=== PATIENT | male | born 1955 | race Caucasian/White ===

== ENCOUNTER 2021-02-15 11:35 | Inpatient (IN) | payer MEDICARE, SELFPAY ==
[2021-02-15] VITALS (10 sets, daily range): BP systolic 115–153; BP diastolic 64–73; PULSE 56–77; RESP 18–20; TEMP 36.3–36.7; O2SAT 96–100; BMI 40.5; BMI 39.2
--- NOTE | 2021-02-15 11:50 | NURSING ---
NO OLD EKGS
--- NOTE | 2021-02-15 12:00 | EKG12_ITS ---
Test Reason : CONFUSION Blood Pressure : / mmHG Vent. Rate : 067 BPM Atrial Rate : 066 BPM P-R Int : 000 ms QRS Dur : 158 ms QT Int : 470 ms P-R-T Axes : 000 080 -79 degrees QTc Int : 496 ms Atrial fibrillation Left bundle branch block Abnormal ECG Confirmed by PATRICIA PRITCHARD, SUNIL ([id number]), electronic news gathering editor VANDA JANE ([id number]) on 02/18/2021 1:29:45 PM Referred By: AISHA Confirmed By:LALI GOMEZ MD
--- NOTE | 2021-02-15 12:09 | EX.ED.DYSGE1 ---
HPI History of Present Illness Chief Complaint: Confusion Informant: patient and spouse/S.O. Narrative Narrative: Patient is a 65-year-old male with a past medical history of CAD with bypass who presents to the emergency department for multiple complaints. He was seen by his PCP yesterday. He was diagnosed with new onset atrial fibrillation and started on Eliquis. He had basic lab work drawn at that time. He was also complaining of 25 pound weight gain with significant lower leg swelling over the past couple of months. He does feel short of breath with exertion. Patient's lab work came back today with a sodium of 111. He has been having some confusion over the past couple of days per the . He thought that he was driving to [place] today whenever they were coming to [place]. Patient does not feel confused. He denies any headache or vision changes. He denies any chest pain or palpitations. No abdominal pain or vomiting. No change in bowel movements. No urinary symptoms. He states that he has not been watching his diet. Patient was supposed to come to the emergency department yesterday but refused. They ended up starting him on Lasix and spironolactone. [facility] Medical History (Updated 02/15/21 @ 14:[address] Augustus Ruiz, ) Hypertension Home Medications amlodipine 10 mg PO DAILY 02/15/21 [History Last Taken 02/15/21] apixaban [Eliquis] 5 mg PO BID 02/15/21 [History Last Taken 02/15/21] atenolol 100 mg PO DAILY 02/15/21 [History Last Taken 02/15/21] atorvastatin 20 mg PO DAILY 02/15/21 [History Last Taken 02/15/21] famotidine 40 mg PO DAILY 02/15/21 [History Last Taken 02/15/21] furosemide 60 mg PO DAILY 02/15/21 [History Last Taken 02/15/21] hydrochlorothiazide 25 mg PO DAILY 02/15/21 [History Last Taken 02/14/21] isosorbide mononitrate 60 mg PO DAILY 02/15/21 [History Last Taken 02/15/21] lisinopril 20 mg PO DAILY 02/15/21 [History Last Taken 02/15/21] multivitamin 1 tab PO LUNCH 02/15/21 [History Last Taken 02/14/21] sour cason extract [Tart Cason Extract] 1,000 mg PO LUNCH 02/15/21 [History Last Taken 02/14/21] spironolactone 25 mg PO DAILY 02/15/21 [History Last Taken Unknown] Allergy/AdvReac Type Severity Reaction Status Date / Time albuterol [From Ventolin HFA] Allergy Rash Verified 02/15/21 11:38 Family History (Updated 02/15/21 @ 13:47 by Saniya Amaya) Father CAD (coronary artery disease) Uncle CAD (coronary artery disease) Father Myocardial infarction Uncle Myocardial infarction Social History Smoking Status: Never smoker ROS ROS ED Constitutional Constitutional ED: Denies chills or fever(s) Eyes Eyes: Denies change in vision ENT ENT ED: Denies epistaxis or rhinorrhea Cardiovascular Cardiovascular: Denies chest pain or palpitations Respiratory/Chest Respiratory/Chest: Reports dyspnea on exertion; Denies cough Gastrointestinal Gastrointestinal: Denies abdominal pain, diarrhea, nausea or vomiting Genitourinary Genitourinary ED: Denies dysuria, hematuria or urinary frequency Musculoskeletal Musculoskeletal: Denies back pain or neck pain Integumentary Denies rash Neurologic Neurologic: Denies dizziness, headache(s) or weakness EXAM Physical Exam Const Vital Signs: 02/15/21 11:35 02/15/21 12:53 02/15/21 13:43 Temperature 97.8 F Temperature Source Temporal Pulse Rate 77 68 72 Respiratory Rate 18 18 Respiratory Effort Respiratory Pattern Blood Pressure 132/71 H Blood Pressure Mean 91 Pulse Ox 97 Oxygen Delivery Method Room Air Room Air 02/15/21 13:48 Temperature Temperature Source Pulse Rate Respiratory Rate Respiratory Effort Labored Respiratory Pattern Normal Blood Pressure Blood Pressure Mean Pulse Ox Oxygen Delivery Method Positive well nourished and well developed General Appearance ED: well developed and NAD HEENT Reports normocephalic, head/scalp atraumatic and moist mucous membranes Eyes PERRL and EOMs intact bilaterally Neck supple General: Negative for tenderness Resp normal respiratory effort and clear to auscultation bilaterally Auscultation: Negative for rales, rhonchi or wheezes Cardio regular rate and no murmurs Rhythm: abnormal rhythm GI normal to inspection, nondistended, normoactive bowel sounds and non-tender Palpation: soft; Negative for guarding or rebound tenderness present Extremity Extremity Narrative: Significant symmetrical pitting edema bilateral lower extremities. General Extremety ED: Yes edema; Negative for tenderness General Extremity: edema Neuro oriented x3, CN's II-XII intact bilaterally and no sensory deficits noted Sensorium / Orientation: alert Motor Exam: strength 5/5 throughout Psych mental status grossly normal Skin no rashes or lesions noted MDM MDM MDM Narrative Medical decision making narrative: Patient presents to the ED for weight gain, shortness of breath with exertion, new onset atrial fibrillation, confusion and hyponatremia. Vital signs within normal limits on arrival. He is in no acute distress. He is alert and oriented on my examination. No focal deficits. Will repeat lab work here and obtain chest x-ray and EKG. Patient's lab work revealed him to be hyponatremic with a sodium of 114 and a chloride of 75. His serum osmolality is 242. His bilirubin is mildly high at 3.7. Patient's TSH is within normal limits. Urine no signs of abnormality. He otherwise has remained stable throughout ED stay. No acute focal deficits. No obvious encephalopathy secondary to the sodium but this could be contributing to his confusion the past few days. With these new findings patient will need to be admitted to the hospital for further evaluation and management. He understands and is agreeable with this plan. Lab Data Labs: Laboratory Results - last 24 hr 02/15/21 02/15/21 02/15/21 12:20 12:35 12:35 WBC 7.1 RBC 3.84 L Hgb 11.6 L Hct 32.4 L MCV 84.4 MCH 30.2 MCHC 35.8 RDW Std Deviation 37.9 RDW Coeff of Gail 12.5 Plt Count 231 MPV 10.1 Immature Gran % (Auto) 0.400 Neut % (Auto) 81.1 H Lymph % (Auto) 7.9 L [place] % (Auto) 9.8 Eos % (Auto) 0.4 Baso % (Auto) 0.4 Absolute Neuts (auto) 5.8 Absolute Lymphs (auto) 0.56 L Nucleated RBC % 0 Platelet Estimate ADEQUATE Sodium 114 L* Potassium 3.8 Chloride 75 L Carbon Dioxide 27.0 Anion Gap 12 BUN 16 Creatinine 1.43 H Estim Creat Clear Calc 42.55 Est GFR (MDRD) Af Amer 64 Est GFR (MDRD) Non-Af 52 L BUN/Creatinine Ratio 11.2 Glucose 123 H Serum Osmolality Calcium 9.1 Phosphorus 3.0 Magnesium 1.4 L Total Bilirubin 3.70 H AST 46 H ALT 28 Alkaline Phosphatase 155 H Troponin I High Sens 8 B-Natriuretic Peptide Total Protein 7.7 Albumin 4.2 Globulin 3.5 Albumin/Globulin Ratio 1.2 TSH 2.01 Urine Color Yellow Urine Clarity Clear Urine pH 6.0 Ur Specific [place] 1.010 Urine Protein Negative Urine Glucose (UA) Normal Urine Ketones Negative Urine Occult Blood Negative Urine Nitrite Negative Urine Bilirubin Negative Urine Urobilinogen Normal Ur Leukocyte Esterase Negative Urine RBC 0 SEEN Urine WBC 0 SEEN Ur Squamous Epith Cells 0 SEEN Urine Bacteria 0 SEEN Urine Mucus 0 SEEN 02/15/21 02/15/21 12:35 12:35 WBC RBC Hgb Hct MCV MCH MCHC RDW Std Deviation RDW Coeff of Gail Plt Count MPV Immature Gran % (Auto) Neut % (Auto) Lymph % (Auto) [place] % (Auto) Eos % (Auto) Baso % (Auto) Absolute Neuts (auto) Absolute Lymphs (auto) Nucleated RBC % Platelet Estimate Sodium Potassium Chloride Carbon Dioxide Anion Gap BUN Creatinine Estim Creat Clear Calc Est GFR (MDRD) Af Amer Est GFR (MDRD) Non-Af BUN/Creatinine Ratio Glucose Serum Osmolality 242 L Calcium Phosphorus Magnesium Total Bilirubin AST ALT Alkaline Phosphatase Troponin I High Sens B-Natriuretic Peptide 233.2 H Total Protein Albumin Globulin Albumin/Globulin Ratio TSH Urine Color Urine Clarity Urine pH Ur Specific [place] Urine Protein Urine Glucose (UA) Urine Ketones Urine Occult Blood Urine Nitrite Urine Bilirubin Urine Urobilinogen Ur Leukocyte Esterase Urine RBC Urine WBC Ur Squamous Epith Cells Urine Bacteria Urine Mucus Radiography Diagnostic Testing: Radiology Impression Chest X-Ray 02/15/21 12:55 IMPRESSION: Mild degree of increased markings at the right lung base suggestive of either atelectasis and/or early infiltrate. Radiographic follow-up is recommended. Electronically Signed: Larry Holman MD at 13:08 EDT , Service support , EKG Initial EKG: Attestation: I personally reviewed and interpreted this EKG as follows: (Rate of 67 bpm and irregularly irregular rhythm. Prolonged QRS of 158 with left bundle branch block. No significant ST elevations or depressions. There are T wave inversions in lead III, aVF) Discharge Plan Dx/Rx/DC Orders Clinical Impression: Hyponatremia, Confusion, New onset a-fib Disposition Disposition: Acute Care Hospital [facility]
[2021-02-15 12:25] LABS: Bacteria 0 SEEN /hpf (None Seen); Mucous, Urine 0 SEEN /hpf (<or=2+); Red Blood Cells-Urine 0 SEEN /hpf (0-5); Squamous Epithelial Cells - UA 0 SEEN /hpf (0-5); White Blood Cells 0 SEEN /hpf (0-5)
[2021-02-15 12:47] LABS: Color, Urine Yellow (Yellow); Glucose, Dipstick Normal (Normal); Ketone-Dipstick Negative (Negative); Leukocyte Esterase-Dipstick Negative /ul (Negative); Nitrite-Dipstick Negative (Negative); Occult Blood-Urine Negative /ul (Negative); Protein-Dipstick Negative (Negative); Urine Bilirubin Dipstick Negative (Negative); Urine Clarity Clear (Clear); Urine Urobilinogen Normal (Normal)
[2021-02-15 12:50] LABS: Absolute Lymphocyte Count 0.56 X10^3/uL (0.83-4.51); Absolute Neutrophil Count 5.8 X10^3/uL (2.0-7.7); Basophil# 0.03 X10^3/uL; Basophil% 0.4 % (0-1); Eosinophil# 0.03 X10^3/uL; Eosinophils% 0.4 % (0-5); Hematocrit 32.4 % (40-54); Hemoglobin 11.6 g/dL (13.0-16.5); Lymphocyte # 0.56 X10^3/ul (0.83-4.51); Lymphocyte % 7.9 % (19-41); Mean Corp Hgb Conc 35.8 g/dL (32-36); Mean Corpuscular Hgb 30.2 pg (27.0-32.0); Mean Corpuscular Volume 84.4 fL (80-94); Mean Platelet Vol. 10.1 fl (6.2-12.0); Monocyte% 9.8 % (0-10); NRBC Flagged by Analyzer 0 % (0-5); Neutrophil # 5.77 X10^3/uL (2.7-7.7); Neutrophil % 81.1 % (47-70); POSITIVE DIFFERENTIAL YES; Platelet Count 231 K/mm3 (150-450); RBC Distribution Width CV 12.5 % (11.6-14.6); RBC Distribution Width SD 37.9 fl (35.1-43.9); Red Blood Count 3.84 M/mm3 (4.6-6.2); White Blood Count 7.1 K/mm3 (4.4-11.0)
[2021-02-15 12:52] LABS: Differential Indicated SCAN CRITERIA MET
--- NOTE | 2021-02-15 12:55 | RAD_ITS ---
STUDY: X-RAY CHEST REASON FOR EXAM: Male, 65 years old. Shortness of breath and confusion. TECHNIQUE: Single AP portable view of the chest. COMPARISON: None. FINDINGS: EKG electrodes are seen. Mild increased markings at the right lung base suggestive of atelectasis and/or early infiltrate. There is no demonstrated pleural abnormality. Sternal cerclage wires and vascular clips are present from a prior sternotomy and coronary artery bypass graft procedure (CABG). Normal mediastinum and rody. Normal visualized pulmonary arteries. There is atherosclerotic calcification of the aortic arch with tortuosity. Normal visualized thoracic spine. Normal visualized ribs, clavicles, and shoulders. There is no demonstrated abnormality of the visualized soft tissue structures of the upper abdomen. RAD/Chest 1 View (Portable) IMPRESSION: Mild degree of increased markings at the right lung base suggestive of either atelectasis and/or early infiltrate. Radiographic follow-up is recommended. Electronically Signed: Larry Holman MD at 13:08 EDT , Service support ,
[2021-02-15 13:12] LABS: BNP,B-Type NATRIURETIC PEPTIDE 233.2 pg/mL (0-100)
[2021-02-15 13:17] LABS: Platelet Estimate ADEQUATE (ADEQ)
[2021-02-15 13:26] LABS: ALB/GLOB Ratio 1.2 RATIO (0.9-2.4); AST(SGOT) 46 U/L (15-37); Alanine Aminotransfer ALT/SGPT 28 U/L (16-61); Albumin, Serum 4.2 g/dL (3.2-5.0); Alkaline Phosphatase 155 U/L (45-117); Anion Gap 12 (5-15); BUN 16 mg/dL (7-18); BUN/Creat Ratio 11.2 RATIO (10-20); Calcium,Total 9.1 mg/dL (8.5-10.1); Chloride 75 mmol/L (98-107); Creatinine, Serum 1.43 mg/dL (0.70-1.30); EST Glomerular Filtration Rate 52 mL/min (>60); Est Glom Filt Rate - Afr Amer 64 mL/min (>60); Estimated Creatinine Clearance 42.55 ml/min; Globulin 3.5 g/dL (2.2-4.2); Glucose 123 mg/dL (74-106); Magnesium 1.4 mg/dL (1.6-2.6); Potassium 3.8 mmol/L (3.5-5.1); Protein, Total 7.7 g/dL (6.4-8.2); Sodium Level 114 mmol/L (136-145); Thyroid Stim Hormone (TSH) 2.01 uIU/mL (0.358-3.74); Troponin-I HS 8 pg/mL (3.0-78.0)
[2021-02-15 13:45] LABS: Osmolality, Serum 242 mOsm/KG (280-301)
--- NOTE | 2021-02-15 14:35 | NURSING ---
PCU NUAMAH HYPONATREMIA
[2021-02-15 15:11] LABS: Osmolality, Urine 258 mOsm/KG
[2021-02-15 15:12] LABS: Urine Sodium 82 mmol/L (Not Establ.)
--- NOTE | 2021-02-15 15:45 | HP.PCM.HOS_ITS ---
[facility] - General General Date of Admission: 02/15/21 Date of Service: 02/15/21 HPI Narrative RONAK GLEASON, is a 65 M who presents with weight gain, shortness of breath on exertion. He was sent here by the primary care physician assistant elementary teacher that his CHF management as well as A. fib. Patient denies any history of A. fib. He has history of DE at the age of 29 status post CABG. He denies any fever chills or diarrhea. He drinks 2 cocktails every night. Denies drinking beer. He admits to gaining more than 20 pounds in the last few weeks. He was started on Lasix and spironolactone yesterday. Vitals in the ED were stable. Patient's admitting blood work significant for sodium of 114, potassium 3.5, BUN 16, creatinine 1.40. No previous creatinine to compare. Magnesium is 1.4, total bilirubin was 3.70, AST 46 ALT 155, BNP was 233.2, TSH was 2.01 PFS Medical History CAD (coronary artery disease) GERD (gastroesophageal reflux disease) HLD (hyperlipidemia) Hypertension Home Medications amlodipine 10 mg PO DAILY 02/15/21 [History Last Taken 02/15/21] apixaban [Eliquis] 5 mg PO BID 02/15/21 [History Last Taken 02/15/21] atenolol 100 mg PO DAILY 02/15/21 [History Last Taken 02/15/21] atorvastatin 20 mg PO DAILY 02/15/21 [History Last Taken 02/15/21] diphenhydramine HCl 50 mg QHS 02/15/21 [History Last Taken 02/14/21] famotidine 20 mg PO BID 02/15/21 [History Last Taken 02/15/21] furosemide 60 mg PO DAILY 02/15/21 [History Last Taken 02/15/21] hydrochlorothiazide 25 mg PO DAILY 02/15/21 [History Last Taken 02/14/21] isosorbide mononitrate 60 mg PO DAILY 02/15/21 [History Last Taken 02/15/21] lisinopril 20 mg PO DAILY 02/15/21 [History Last Taken 02/15/21] multivitamin 1 tab PO LUNCH 02/15/21 [History Last Taken 02/14/21] sour cason extract [Tart [place] Extract] 1,000 mg PO LUNCH 02/15/21 [History Last Taken 02/14/21] spironolactone 25 mg PO DAILY 02/15/21 [History Last Taken Unknown] Allergy/AdvReac Type Severity Reaction Status Date / Time albuterol [From Ventolin HFA] Allergy Rash Verified 02/15/21 11:38 Family History Father CAD (coronary artery disease) Uncle CAD (coronary artery disease) Father Myocardial infarction Uncle Myocardial infarction Surgical History History of ankle surgery Hx of CABG Social History (Updated 02/15/21 @ 16:[address] Tia Mckenzie MD) Smoking Status: Never smoker alcohol intake: current details: drinks 2 cocktails ROS ROS Narrative Constitutional: Denies: Anorexia, Chills, Fever, Night Sweats, Weight gain more than 20 pound weight gain Eyes: Denies: Blurred vision, Cataracts, Conjunctivae Inflammation, Pain, Redness, Vision Change HEENT: Denies: Difficulty Hearing, Difficulty Swallowing, Head Aches, Hearing Changes, Sinus Congestion, Sinus Drainage Cardiovascular: Admits to shortness of breath with exertion, with skin denies: Chest Pain, Orthopnea, Palpitations Respiratory: Denies: Cough, Shortness of breath at rest, Sputum production Gastrointestinal: Denies: Abdominal Pain, Nausea, Vomiting Genitourinary: Denies: Dysuria Musculoskeletal: Denies: Joint Pain, Joint stiffness, Joint swelling, Joint Tenderness Skin: Denies: Rash, Wounds Neurological: Denies: Numbness, Tingling, Focal weakness Vital Signs Vital Signs Vital Signs: 02/15/21 11:35 02/15/21 12:53 02/15/21 13:43 Temperature 97.8 F Temperature Source Temporal Pulse Rate 77 68 72 Respiratory Rate 18 18 Respiratory Effort Respiratory Pattern Blood Pressure 132/71 H Blood Pressure Mean 91 Blood Pressure Source Blood Pressure Position Blood Pressure Location Pulse Ox 97 Oxygen Delivery Method Room Air Room Air 02/15/21 13:48 02/15/21 14:41 02/15/21 15:09 Temperature 98.0 F 97.9 F Temperature Source Oral Oral Pulse Rate 63 64 Respiratory Rate 20 H 18 Respiratory Effort Labored Respiratory Pattern Normal Blood Pressure 115/64 153/73 H Blood Pressure Mean 81 99 Blood Pressure Source Monitor Blood Pressure Position Semi-Fowlers Blood Pressure Location Right Arm Pulse Ox 96 100 Oxygen Delivery Method Room Air Room Air Weight Weight: 103.6 kg Body Mass Index (BMI) 39.2 Physical Exam Narrative Physical exam: General: Alert, Oriented x3, Cooperative, No apparent distress, Well developed, morbidly obese HEENT: Atraumatic Oral: Moist Mucosa Neck: Supple Lungs: Diminished, few crackles at the bases Cardiovascular: HS I+II, regular, no murmurs Abdomen: Bowel Sounds Present, Soft, Non Tender, obese Extremities: Bilateral lower extremity edema, generalized edema, +4, lower extremity feels woody from chronic venous stasis Results Lab / Micro Data Result Diagrams: 02/15/21 12:35 02/15/21 15:35 Labs: Laboratory Results - last 24 hr 02/15/21 12:20: Urine Color Yellow, Urine Clarity Clear, Urine pH 6.0, Ur Specific [place] 1.010, Urine Protein Negative, Urine Glucose (UA) Normal, Urine Ketones Negative, Urine Occult Blood Negative, Urine Nitrite Negative, Urine Bilirubin Negative, Urine Urobilinogen Normal, Ur Leukocyte Esterase Negative, Urine RBC 0 SEEN, Urine WBC 0 SEEN, Ur Squamous Epith Cells 0 SEEN, Urine Bacteria 0 SEEN, Urine Mucus 0 SEEN 02/15/21 12:35: WBC 7.1, RBC 3.84 L, Hgb 11.6 L, Hct 32.4 L, MCV 84.4, MCH 30.2, MCHC 35.8, RDW Std Deviation 37.9, RDW Coeff of Gail 12.5, Plt Count 231, MPV 10.1, Immature Gran % (Auto) 0.400, Neut % (Auto) 81.1 H, Lymph % (Auto) 7.9 L, [place] % (Auto) 9.8, Eos % (Auto) 0.4, Baso % (Auto) 0.4, Absolute Neuts (auto) 5.8, Absolute Lymphs (auto) 0.56 L, Nucleated RBC % 0, Platelet Estimate ADEQUATE 02/15/21 12:35: Sodium 114 L*, Potassium 3.8, Chloride 75 L, Carbon Dioxide 27.0, Anion Gap 12, BUN 16, Creatinine 1.43 H, Estim Creat Clear Calc 42.55, Est GFR (MDRD) Af Amer 64, Est GFR (MDRD) Non-Af 52 L, BUN/Creatinine Ratio 11.2, Glucose 123 H, Calcium 9.1, Phosphorus 3.0, Magnesium 1.4 L, Total Bilirubin 3.70 H, AST 46 H, ALT 28, Alkaline Phosphatase 155 H, Troponin I High Sens 8, Total Protein 7.7, Albumin 4.2, Globulin 3.5, Albumin/Globulin Ratio 1.2, TSH 2.01 02/15/21 12:35: Serum Osmolality 242 L 02/15/21 12:35: B-Natriuretic Peptide 233.2 H 02/15/21 14:45: Urine Osmolality 258, Ur Random Sodium 82, Urine Creatinine 17.20 Radiology Impression Chest X-Ray 02/15/21 12:55 IMPRESSION: Mild degree of increased markings at the right lung base suggestive of either atelectasis and/or early infiltrate. Radiographic follow-up is recommended. Electronically Signed: Larry Holman MD at 13:08 EDT , Service support , Assessment & Plan Assessment/Plan (1) Hyponatremia: (2) Hypomagnesemia: (3) Metabolic encephalopathy: (4) New onset a-fib: (5) CHF exacerbation: QUALIFIERS: Heart failure type: unspecified Qualified Code(s): I50.9 - Heart failure, unspecified PLAN: 1. Acute hyponatremia in a patient with unknown previous sodium level Patient is new to our system Admitted with sodium of 114. Serum sodium is 242, TSH is normal likely second diana to hypervolemic hypotonic hyponatremia We will check urine sodium, urine creatinine, urine osmolality We will start patient on CHF protocol -Daily weights, strict I's and O's, IV Lasix, incentive spirometer Repeat BMP every 4, nephrology consulted 2. Acute CHF, unknown previous EF, started on IV Lasix, daily weights, CHF protocol We will get 2D echo 3. Hypomagnesemia, replace, recheck in a.m. 4. Newly diagnosed A. fib, continue on apixaban, atenolol 5. CAD status post CABG/hypertension/hyperlipidemia -all remained stable 6.Morbid obesity, BMI 39.2, lifestyle modification recommended I discussed and explained in details the various types of CODE STATUS-full code, DNR CCA, DNR CC. Patient chose DNR-CCA, no intubation. Time spent discussing CODE STATUS 16 minutes Charges/Coding Visit Charges Inpatient E&M: 12016 Init Hosp L3 Procedures Hospitalists Procedures: 99605 Advncd Care Plan 30 Min
[2021-02-15] MEDS: 0.9% Normal Saline 1,000 ML 125 ML IV (15:57)
[2021-02-15 16:07] LABS: Anion Gap 10 (5-15); BUN 16 mg/dL (7-18); BUN/Creat Ratio 11.4 RATIO (10-20); Calcium,Total 9.2 mg/dL (8.5-10.1); Chloride 75 mmol/L (98-107); EST Glomerular Filtration Rate 54 mL/min (>60); Est Glom Filt Rate - Afr Amer 65 mL/min (>60); Estimated Creatinine Clearance 43.46 ml/min; Glucose 126 mg/dL (74-106); Potassium 3.5 mmol/L (3.5-5.1)
[2021-02-15 16:09] LABS: Sodium Level 115 mmol/L (136-145)
[2021-02-15] MEDS: Magnesium Sulfate 4gm/100mL 4 GM/100 ML IV.SOLN. IV (16:40)
--- NOTE | 2021-02-15 16:56 | ECHOD_ITS ---
Reason For Study: CHF, A. fib Procedure This was a 2D Doppler, Color Flow transthoracic echocardiogram. Exam performed portable in patient room. Left Ventricle Normal left ventricle. The estimated ejection fraction is EF 50-55 %. Right Ventricle Normal right ventricle. Normal systolic function. Atria The left atrium is mildly enlarged. Normal right atrium. Mitral Valve There is mild mitral annular calcification. Mild-Moderate (1-2+) mitral valve insufficiency. Tricuspid Valve Normal tricuspid valve. Mild tricuspid valve insufficiency. Aortic Valve Normal aortic valve. Trivial aortic valve insufficiency. Pulmonic Valve The pulmonic valve is not well visualized. Great Vessels Normal aortic root. Pericardium/Pleural No pericardial effusion. MMode/2D Measurements & Calculations LVIDd: 4.7 cm IVSd: 0.87 cm LVOT diam: 2.0 cm LVIDs: 3.1 cm LVPWd: 1.0 cm LVOT area: 3.2 cm2 RVDd: 4.1 cm FS: 33.6 % Ao root diam: 4.2 cm LAV(MOD-bp): 61.5 ml LVAd ap4: 33.1 cm2 LAV(MOD-bp) Indexed: 29.7 ml/m2 LVLd ap4: 8.1 cm LAV(MOD-sp2): 52.4 ml EDV(MOD-sp4): 112.2 ml LAV(MOD-sp4): 58.5 ml EDV(sp4-el): 115.5 ml LVAs ap4: 20.3 cm2 LVLs ap4: 6.7 cm ESV(MOD-sp4): 54.6 ml ESV(sp4-el): 52.0 ml EF(MOD-sp4): 51.4 % EF(sp4-el): 55.0 % SV(MOD-sp4): 57.7 ml SV(sp4-el): 63.5 ml LA A4 area: 21.1 cm2 LA dimension(2D): 4.4 cm RA A4 area: 14.7 cm2 Doppler Measurements & Calculations MV E max nigel: 134.4 cm/sec Ao V2 max: 205.8 cm/sec LV V1 max: 129.0 cm/sec Ao max P.9 mmHg LV V1 max P.7 mmHg Ao V2 mean: 152.0 cm/sec LV V1 mean P.7 mmHg Ao mean P.1 mmHg LV V1 mean: 90.7 cm/sec Ao V2 VTI: 44.1 cm LV V1 VTI: 26.7 cm CHELY(I,D): 1.9 cm2 CHELY(V,D): 2.0 cm2 SV(LVOT): 85.2 ml PA V2 max: 88.3 cm/sec TR max nigel: 276.3 cm/sec TR max P.6 mmHg ECHO/Echo Complete Interpretation Summary The estimated ejection fraction is EF 50-55 %. Normal LV systolic Function Mild -Moderate MR No prior echo to compare Ordering Physician: Tia Mckenzie Performed By: Cornelia Bergeron RDCS
[2021-02-15] MEDS: Furosemide 40 MG/4 ML Vial IV (17:09)
[2021-02-15] MEDS: 0.9% Saline Lock 10 ML Syringe IV (17:09)
--- NOTE | 2021-02-15 17:12 | PCS.PANDOC ---
PANDEMIC DOCUMENTATION INITIATED: Date: 02/11/2021 Time: 190
[2021-02-15] MEDS: Potassium Chloride Oral Tablet 20 MEQ PO (17:33)
[2021-02-15 19:11] LABS: Troponin-I HS 9 pg/mL (3.0-78.0)
[2021-02-15 19:12] LABS: Anion Gap 12 (5-15); BUN 16 mg/dL (7-18); BUN/Creat Ratio 11.1 RATIO (10-20); Chloride 75 mmol/L (98-107); Creatinine, Serum 1.44 mg/dL (0.70-1.30); EST Glomerular Filtration Rate 52 mL/min (>60); Est Glom Filt Rate - Afr Amer 63 mL/min (>60); Estimated Creatinine Clearance 42.25 ml/min; Glucose 151 mg/dL (74-106); Sodium Level 115 mmol/L (136-145)
[2021-02-15] MEDS: Ipratropium 0.5 MG/2.5 ML SOLUTION INHALATION (20:19)
[2021-02-15] MEDS: Potassium Chloride Oral Tablet 20 MEQ 60 MEQ PO (21:21)
[2021-02-15] MEDS: APIXABAN 5 MG TABLET PO (21:25)
[2021-02-15] MEDS: DiphenhydrAMINE 25 MG Capsule PO (21:25)
[2021-02-16] VITALS (12 sets, daily range): BP systolic 116–127; BP diastolic 61–68; PULSE 51–100; RESP 15–18; TEMP 36.6–37.2; O2SAT 96–98
[2021-02-16 00:19] LABS: Anion Gap 11 (5-15); BUN 18 mg/dL (7-18); BUN/Creat Ratio 12.2 RATIO (10-20); Calcium,Total 8.9 mg/dL (8.5-10.1); Chloride 76 mmol/L (98-107); Creatinine, Serum 1.48 mg/dL (0.70-1.30); EST Glomerular Filtration Rate 50 mL/min (>60); Est Glom Filt Rate - Afr Amer 61 mL/min (>60); Estimated Creatinine Clearance 41.11 ml/min; Glucose 136 mg/dL (74-106); Potassium 3.4 mmol/L (3.5-5.1); Sodium Level 115 mmol/L (136-145)
[2021-02-16 04:19] LABS: Anion Gap 7 (5-15); BUN 17 mg/dL (7-18); BUN/Creat Ratio 13.1 RATIO (10-20); Calcium,Total 8.7 mg/dL (8.5-10.1); Chloride 79 mmol/L (98-107); EST Glomerular Filtration Rate 59 mL/min (>60); Est Glom Filt Rate - Afr Amer 71 mL/min (>60); Glucose 119 mg/dL (74-106); Potassium 3.7 mmol/L (3.5-5.1); Sodium Level 116 mmol/L (136-145)
[2021-02-16 06:55] LABS: Absolute Lymphocyte Count 0.89 X10^3/uL (0.83-4.51); Absolute Neutrophil Count 3.7 X10^3/uL (2.0-7.7); Basophil# 0.05 X10^3/uL; Basophil% 0.9 % (0-1); Eosinophil# 0.15 X10^3/uL; Eosinophils% 2.7 % (0-5); Hematocrit 30.7 % (40-54); Hemoglobin 11.2 g/dL (13.0-16.5); Lymphocyte # 0.89 X10^3/ul (0.83-4.51); Lymphocyte % 15.8 % (19-41); Mean Corp Hgb Conc 36.5 g/dL (32-36); Mean Corpuscular Hgb 30.6 pg (27.0-32.0); Mean Corpuscular Volume 83.9 fL (80-94); Mean Platelet Vol. 10.1 fl (6.2-12.0); Monocyte# 0.84 X10^3/uL; Monocyte% 14.9 % (0-10); NRBC Flagged by Analyzer 0 % (0-5); Neutrophil # 3.66 X10^3/uL (2.7-7.7); Neutrophil % 65.2 % (47-70); Platelet Count 191 K/mm3 (150-450); RBC Distribution Width CV 12.7 % (11.6-14.6); RBC Distribution Width SD 38.6 fl (35.1-43.9); Red Blood Count 3.66 M/mm3 (4.6-6.2); White Blood Count 5.6 K/mm3 (4.4-11.0)
[2021-02-16] MEDS: Ipratropium 0.5 MG/2.5 ML SOLUTION INHALATION ×6 (07:16→23:16)
[2021-02-16 07:43] LABS: ALB/GLOB Ratio 1.3 RATIO (0.9-2.4); AST(SGOT) 24 U/L (15-37); Alanine Aminotransfer ALT/SGPT 26 U/L (16-61); Albumin, Serum 3.9 g/dL (3.2-5.0); Alkaline Phosphatase 140 U/L (45-117); Anion Gap 9 (5-15); BUN 15 mg/dL (7-18); BUN/Creat Ratio 10.8 RATIO (10-20); Calcium,Total 9.1 mg/dL (8.5-10.1); Chloride 76 mmol/L (98-107); Creatinine, Serum 1.39 mg/dL (0.70-1.30); EST Glomerular Filtration Rate 54 mL/min (>60); Est Glom Filt Rate - Afr Amer 66 mL/min (>60); Estimated Creatinine Clearance 43.77 ml/min; Globulin 2.9 g/dL (2.2-4.2); Glucose 117 mg/dL (74-106); Potassium 3.2 mmol/L (3.5-5.1); Protein, Total 6.8 g/dL (6.4-8.2); Sodium Level 115 mmol/L (136-145)
[2021-02-16] MEDS: Furosemide 40 MG/4 ML Vial IV (08:23)
[2021-02-16] MEDS: 0.9% Saline Lock 10 ML Syringe IV ×3 (08:23→22:34)
[2021-02-16] MEDS: Potassium Chloride Oral Tablet 20 MEQ PO (08:23)
[2021-02-16] MEDS: APIXABAN 5 MG TABLET PO ×2 (08:24→22:33)
[2021-02-16] MEDS: Famotidine 20 MG Tablet 40 MG PO (08:24)
[2021-02-16] MEDS: Isosorbide Mononitrate 60 MG Tablet PO (08:24)
[2021-02-16] MEDS: Atenolol 100 MG Tablet PO (08:25)
[2021-02-16] MEDS: Lisinopril 20 MG Tablet PO (08:25)
[2021-02-16] MEDS: Potassium Chloride Oral Tablet 20 MEQ 60 MEQ PO (09:56)
--- NOTE | 2021-02-16 10:30 | CON.PCM.RE_ITS ---
Assessment & Plan Assessment/Plan (1) Hyponatremia: (2) Hypomagnesemia: (3) Creatinine elevation: (4) New onset a-fib: PLAN: Hyponatremia likely multifactorial from being on hydrochlorothiazide and CHF exacerbation. Patient presented with a sodium 114 mmol/L. Patient asymptomatic. Patient does not need 3% sodium chloride. I agree with holding hydrochlorthiazide. Agree with diuresis with Lasix. I will upgrade the dose to 80 mg 3 times daily. Please stop hydrochlorothiazide discharge. Replace electrolytes as needed. Patient presented with a creatinine 1.3-1.4. Unknown if the patient has CKD at baseline but at risk due to comorbidities. Patient could also has ROSELINE from cardiorenal syndrome. we will continue to monitor renal function panel while on diuretics. Please avoid NOMI inhibitor or ARB. Rest of the management as per the primary service and cardiology service. Please call if any question. Thank you for the consult HPI Consult Data Date of Consult: 02/16/21 HPI Narrative HPI Narrative: RONAK GLEASON, is a 65 M past medical history of coronary a rteries disease s/ CABG, HPLD, hypertension, ERASTO. Present to the hospital for progressive shortness of breath and weight gain. Patient gained about 20 pounds patient was visiting his PCP office who referred him to the hospital for CHF and Afib renal team is consulted for hyponatremia. Patient presented with Na 114. Patient started on lasix 40 mg IV BID yesterday . Na level is 116 this am. Patient said he did not make more urine with IV lasix. IV lasix dose was increased today to TID Patient has been on HCTZ at home Cr is also not normal. not sure about his baseline No diarrhea. Not on SSRI ros 12 systems review is negative today except edema and exertional dyspnea PFSH Medical History CAD (coronary artery disease) GERD (gastroesophageal reflux disease) HLD (hyperlipidemia) Hypertension Home Medications amlodipine 10 mg PO DAILY 02/15/21 [History Last Taken 02/15/21] apixaban [Eliquis] 5 mg PO BID 02/15/21 [History Last Taken 02/15/21] atenolol 100 mg PO DAILY 02/15/21 [History Last Taken 02/15/21] atorvastatin 20 mg PO DAILY 02/15/21 [History Last Taken 02/15/21] diphenhydramine HCl 50 mg QHS 02/15/21 [History Last Taken 02/14/21] famotidine 20 mg PO BID 02/15/21 [History Last Taken 02/15/21] furosemide 60 mg PO DAILY 02/15/21 [History Last Taken 02/15/21] hydrochlorothiazide 25 mg PO DAILY 02/15/21 [History Last Taken 02/14/21] isosorbide mononitrate 60 mg PO DAILY 02/15/21 [History Last Taken 02/15/21] lisinopril 20 mg PO DAILY 02/15/21 [History Last Taken 02/15/21] multivitamin 1 tab PO LUNCH 02/15/21 [History Last Taken 02/14/21] sour cason extract [Tart Cason Extract] 1,000 mg PO LUNCH 02/15/21 [History Last Taken 02/14/21] spironolactone 25 mg PO DAILY 02/15/21 [History Last Taken Unknown] Allergy/AdvReac Type Severity Reaction Status Date / Time albuterol [From Ventolin HFA] Allergy Rash Verified 02/15/21 11:38 Family History Father CAD (coronary artery disease) Uncle CAD (coronary artery disease) Father Myocardial infarction Uncle Myocardial infarction Surgical History History of ankle surgery Hx of CABG Social History (Updated 02/15/21 @ 16:[address] Tia Mckenzie MD) Smoking Status: Never smoker alcohol intake: current details: drinks 2 cocktails Physical Exam Narrative Patient is awake alert oriented. neck no JVD Head atraumatic normocephalic. Heart S1-S2 RRR. Chest bilateral lung bases crackles. Abdomen. Obese no tenderness positive bowel sounds.. Neuro: Awake alert oriented no focal deficits. Extremity: +3 edema of lower extremity with erythema Skin: No skin rash Lab / Micro Data Result Diagrams: 02/16/21 06:27 02/16/21 06:27 Labs: Laboratory Results - last 24 hr 02/15/21 12:20: Urine Color Yellow, Urine Clarity Clear, Urine pH 6.0, Ur Specific [place] 1.010, Urine Protein Negative, Urine Glucose (UA) Normal, Urine Ketones Negative, Urine Occult Blood Negative, Urine Nitrite Negative, Urine Bilirubin Negative, Urine Urobilinogen Normal, Ur Leukocyte Esterase Negative, Urine RBC 0 SEEN, Urine WBC 0 SEEN, Ur Squamous Epith Cells 0 SEEN, Urine Bacteria 0 SEEN, Urine Mucus 0 SEEN 02/15/21 12:35: WBC 7.1, RBC 3.84 L, Hgb 11.6 L, Hct 32.4 L, MCV 84.4, MCH 30.2, MCHC 35.8, RDW Std Deviation 37.9, RDW Coeff of Gail 12.5, Plt Count 231, MPV 10.1, Immature Gran % (Auto) 0.400, Neut % (Auto) 81.1 H, Lymph % (Auto) 7.9 L, [place] % (Auto) 9.8, Eos % (Auto) 0.4, Baso % (Auto) 0.4, Absolute Neuts (auto) 5.8, Absolute Lymphs (auto) 0.56 L, Nucleated RBC % 0, Platelet Estimate ADEQUATE 02/15/21 12:35: Sodium 114 L*, Potassium 3.8, Chloride 75 L, Carbon Dioxide 27.0, Anion Gap 12, BUN 16, Creatinine 1.43 H, Estim Creat Clear Calc 42.55, Est GFR (MDRD) Af Amer 64, Est GFR (MDRD) Non-Af 52 L, BUN/Creatinine Ratio 11.2, Glucose 123 H, Calcium 9.1, Phosphorus 3.0, Magnesium 1.4 L, Total Bilirubin 3.70 H, AST 46 H, ALT 28, Alkaline Phosphatase 155 H, Troponin I High Sens 8, Total Protein 7.7, Albumin 4.2, Globulin 3.5, Albumin/Globulin Ratio 1.2, TSH 2.01 02/15/21 12:35: Serum Osmolality 242 L 02/15/21 12:35: B-Natriuretic Peptide 233.2 H 02/15/21 14:45: Urine Osmolality 258, Ur Random Sodium 82, Urine Creatinine 17.20 02/15/21 15:35: Sodium 115 L*, Potassium 3.5, Chloride 75 L, Carbon Dioxide 30.0, Anion Gap 10, BUN 16, Creatinine 1.40 H, Estim Creat Clear Calc 43.46, Est GFR (MDRD) Af Amer 65, Est GFR (MDRD) Non-Af 54 L, BUN/Creatinine Ratio 11.4, Glucose 126 H, Calcium 9.2 02/15/21 18:38: Sodium 115 L*, Potassium 3.0 L, Chloride 75 L, Carbon Dioxide 28.0, Anion Gap 12, BUN 16, Creatinine 1.44 H, Estim Creat Clear Calc 42.25, Est GFR (MDRD) Af Amer 63, Est GFR (MDRD) Non-Af 52 L, BUN/Creatinine Ratio 11.1, Glucose 151 H, Calcium 9.0 02/15/21 18:38: Troponin I High Sens 9 02/15/21 23:22: Sodium 115 L*, Potassium 3.4 L, Chloride 76 L, Carbon Dioxide 28.0, Anion Gap 11, BUN 18, Creatinine 1.48 H, Estim Creat Clear Calc 41.11, Est GFR (MDRD) Af Amer 61, Est GFR (MDRD) Non-Af 50 L, BUN/Creatinine Ratio 12.2, Glucose 136 H, Calcium 8.9 02/16/21 03:46: Sodium 116 L*, Potassium 3.7, Chloride 79 L, Carbon Dioxide 30. 0, Anion Gap 7, BUN 17, Creatinine 1.30, Estim Creat Clear Calc 46.80, Est GFR (MDRD) Af Amer 71, Est GFR (MDRD) Non-Af 59 L, BUN/Creatinine Ratio 13.1, Glucose 119 H, Calcium 8.7 02/16/21 06:27: WBC 5.6, RBC 3.66 L, Hgb 11.2 L, Hct 30.7 L, MCV 83.9, MCH 30.6, MCHC 36.5 H, RDW Std Deviation 38.6, RDW Coeff of Gail 12.7, Plt Count 191, MPV 10.1, Immature Gran % (Auto) 0.500, Neut % (Auto) 65.2, Lymph % (Auto) 15.8 L, [place] % (Auto) 14.9 H, Eos % (Auto) 2.7, Baso % (Auto) 0.9, Absolute Neuts (auto) 3.7, Absolute Lymphs (auto) 0.89, Nucleated RBC % 0 02/16/21 06:27: Sodium 115 L*, Potassium 3.2 L, Chloride 76 L, Carbon Dioxide 30.0, Anion Gap 9, BUN 15, Creatinine 1.39 H, Estim Creat Clear Calc 43.77, Est GFR (MDRD) Af Amer 66, Est GFR (MDRD) Non-Af 54 L, BUN/Creatinine Ratio 10.8, Glucose 117 H, Calcium 9.1, Magnesium 2.0, Total Bilirubin 2.60 H, AST 24, ALT 26, Alkaline Phosphatase 140 H, Total Protein 6.8, Albumin 3.9, Globulin 2.9, Albumin/Globulin Ratio 1.3 Radiology Impression Chest X-Ray 02/15/21 12:55 IMPRESSION: Mild degree of increased markings at the right lung base suggestive of either atelectasis and/or early infiltrate. Radiographic follow-up is recommended. Electronically Signed: Larry Holman MD at 13:08 EDT , Service support ,
--- NOTE | 2021-02-16 11:05 | CASEMGMT ---
RN CM Face to Face with patient for initial transition planning/care coordination assessment. RN CM introduced self and role at [facility]. Patient sitting in chair, alert and oriented, at bedside. Patient willing to participate in assessment and is able to answer all questions appropriately. Care providers, pharmacy, and demographics verified. Patient wishes to discharge home, denies need for home health at this time. Patient states he has no further needs or concerns at this time. CM to follow for discharge planning needs that may arise. PCP: Crow Carrasquillo Specialists: none Preferred [facility]acy: [facility] Insurance: [facility] Prescription Benefit: none Living Will/HPOA: yes, Suzanne Duran LNOK: Living Arrangements: Patient lives with in a single story home with 2 steps to enter the home. Patient states he is independent at home. Transportation: self/ DME/HHC: Patient states he has cane and cpap at home. Patient denies previous HHC or SNF. Disposition Plan: Patient to discharge home with family support and follow-up plans in place. Ashli LANDRY, RN, CM
[2021-02-16] MEDS: Multivitamins,Therapeutic Tablet 1 TABLET PO (11:28)
[2021-02-16 11:42] LABS: Anion Gap 10 (5-15); BUN 16 mg/dL (7-18); BUN/Creat Ratio 11.4 RATIO (10-20); Calcium,Total 8.8 mg/dL (8.5-10.1); Chloride 78 mmol/L (98-107); EST Glomerular Filtration Rate 54 mL/min (>60); Est Glom Filt Rate - Afr Amer 65 mL/min (>60); Estimated Creatinine Clearance 43.46 ml/min; Glucose 141 mg/dL (74-106); Potassium 3.7 mmol/L (3.5-5.1); Sodium Level 116 mmol/L (136-145)
--- NOTE | 2021-02-16 12:04 | PN.HOSP_ITS ---
Subjective Subjective Patient was seen and examined. He feels improved. Denies any chest pain or shortness of breath Objective Data Objective Data Vital Signs: Vital Signs Temp Pulse Resp BP Pulse Ox 99.0 F 57 L 18 127/61 H 96 02/16/21 08:30 02/16/21 11:45 02/16/21 11:22 02/16/21 08:30 02/16/21 08:30 Oxygen Delivery Method Room Air Weight: 100.3 kg Body Mass Index (BMI) 39.2 Intake & Output: Intake and Output for Last 24 Hours 02/14/21 02/15/21 02/16/21 23:59 23:59 23:59 Intake Total 431.67 / 431.67 600 / 600 Output Total 1300 / 1300 Balance 431.67 / 431.67 -700 / -700 Lab / Micro Data Result Diagrams: 02/16/21 06:27 02/16/21 11:00 Labs: Laboratory Results - last 24 hr 02/15/21 12:20: Urine Color Yellow, Urine Clarity Clear, Urine pH 6.0, Ur Specific [place] 1.010, Urine Protein Negative, Urine Glucose (UA) Normal, Urine Ketones Negative, Urine Occult Blood Negative, Urine Nitrite Negative, Urine Bilirubin Negative, Urine Urobilinogen Normal, Ur Leukocyte Esterase Negative, Urine RBC 0 SEEN, Urine WBC 0 SEEN, Ur Squamous Epith Cells 0 SEEN, Urine Bacteria 0 SEEN, Urine Mucus 0 SEEN 02/15/21 12:35: WBC 7.1, RBC 3.84 L, Hgb 11.6 L, Hct 32.4 L, MCV 84.4, MCH 30.2, MCHC 35.8, RDW Std Deviation 37.9, RDW Coeff of Gail 12.5, Plt Count 231, MPV 10.1, Immature Gran % (Auto) 0.400, Neut % (Auto) 81.1 H, Lymph % (Auto) 7.9 L, [place] % (Auto) 9.8, Eos % (Auto) 0.4, Baso % (Auto) 0.4, Absolute Neuts (auto) 5.8, Absolute Lymphs (auto) 0.56 L, Nucleated RBC % 0, Platelet Estimate ADEQUATE 02/15/21 12:35: Sodium 114 L*, Potassium 3.8, Chloride 75 L, Carbon Dioxide 27.0, Anion Gap 12, BUN 16, Creatinine 1.43 H, Estim Creat Clear Calc 42.55, Est GFR (MDRD) Af Amer 64, Est GFR (MDRD) Non-Af 52 L, BUN/Creatinine Ratio 11.2, Glucose 123 H, Calcium 9.1, Phosphorus 3.0, Magnesium 1.4 L, Total Bilirubin 3.70 H, AST 46 H, ALT 28, Alkaline Phosphatase 155 H, Troponin I High Sens 8, Total Protein 7.7, Albumin 4.2, Globulin 3.5, Albumin/Globulin Ratio 1.2, TSH 2.01 02/15/21 12:35: Serum Osmolality 242 L 02/15/21 12:35: B-Natriuretic Peptide 233.2 H 02/15/21 14:45: Urine Osmolality 258, Ur Random Sodium 82, Urine Creatinine 17.20 02/15/21 15:35: Sodium 115 L*, Potassium 3.5, Chloride 75 L, Carbon Dioxide 30.0, Anion Gap 10, BUN 16, Creatinine 1.40 H, Estim Creat Clear Calc 43.46, Est GFR (MDRD) Af Amer 65, Est GFR (MDRD) Non-Af 54 L, BUN/Creatinine Ratio 11.4, Glucose 126 H, Calcium 9.2 02/15/21 18:38: Sodium 115 L*, Potassium 3.0 L, Chloride 75 L, Carbon Dioxide 28.0, Anion Gap 12, BUN 16, Creatinine 1.44 H, Estim Creat Clear Calc 42.25, Est GFR (MDRD) Af Amer 63, Est GFR (MDRD) Non-Af 52 L, BUN/Creatinine Ratio 11.1, Glucose 151 H, Calcium 9.0 02/15/21 18:38: Troponin I High Sens 9 02/15/21 23:22: Sodium 115 L*, Potassium 3.4 L, Chloride 76 L, Carbon Dioxide 28.0, Anion Gap 11, BUN 18, Creatinine 1.48 H, Estim Creat Clear Calc 41.11, Est GFR (MDRD) Af Amer 61, Est GFR (MDRD) Non-Af 50 L, BUN/Creatinine Ratio 12.2, Glucose 136 H, Calcium 8.9 02/16/21 03:46: Sodium 116 L*, Potassium 3.7, Chloride 79 L, Carbon Dioxide 30.0, Anion Gap 7, BUN 17, Creatinine 1.30, Estim Creat Clear Calc 46.80, Est GFR (MDRD) Af Amer 71, Est GFR (MDRD) Non-Af 59 L, BUN/Creatinine Ratio 13.1, Glucose 119 H, Calcium 8.7 02/16/21 06:27: WBC 5.6, RBC 3.66 L, Hgb 11.2 L, Hct 30.7 L, MCV 83.9, MCH 30.6, MCHC 36.5 H, RDW Std Deviation 38.6, RDW Coeff of Gail 12.7, Plt Count 191, MPV 10.1, Immature Gran % (Auto) 0.500, Neut % (Auto) 65.2, Lymph % (Auto) 15.8 L, [place] % (Auto) 14.9 H, Eos % (Auto) 2.7, Baso % (Auto) 0.9, Absolute Neuts (auto) 3.7, Absolute Lymphs (auto) 0.89, Nucleated RBC % 0 02/16/21 06:27: Sodium 115 L*, Potassium 3.2 L, Chloride 76 L, Carbon Dioxide 30.0, Anion Gap 9, BUN 15, Creatinine 1.39 H, Estim Creat Clear Calc 43.77, Est GFR (MDRD) Af Amer 66, Est GFR (MDRD) Non-Af 54 L, BUN/Creatinine Ratio 10.8, Glucose 117 H, Calcium 9.1, Magnesium 2.0, Total Bilirubin 2.60 H, AST 24, ALT 26, Alkaline Phosphatase 140 H, Total Protein 6.8, Albumin 3.9, Globulin 2.9, Albumin/Globulin Ratio 1.3 02/16/21 11:00: Sodium 116 L*, Potassium 3.7, Chloride 78 L, Carbon Dioxide 2 8.0, Anion Gap 10, BUN 16, Creatinine 1.40 H, Estim Creat Clear Calc 43.46, Est GFR (MDRD) Af Amer 65, Est GFR (MDRD) Non-Af 54 L, BUN/Creatinine Ratio 11.4, Glucose 141 H, Calcium 8.8 Radiography Diagnostic Testing: Radiology Impression Chest X-Ray 02/15/21 12:55 IMPRESSION: Mild degree of increased markings at the right lung base suggestive of either atelectasis and/or early infiltrate. Radiographic follow-up is recommended. Electronically Signed: Larry Holman MD at 13:08 EDT , Service support , Physical Exam Narrative Physical exam: General: Alert, Oriented x3, Cooperative, No apparent distress, Well developed, morbidly obese HEENT: Atraumatic Oral: Moist Mucosa Neck: Supple Lungs: Diminished, few crackles at the bases Cardiovascular: HS I+II, regular, no murmurs Abdomen: Bowel Sounds Present, Soft, Non Tender, obese Extremities: Bilateral lower extremity edema, generalized edema, +4, lower extremity feels woody from chronic venous stasis Assessment & Plan Assessment/Plan (1) Hyponatremia: (2) Hypomagnesemia: (3) New onset a-fib: (4) CHF exacerbation: QUALIFIERS: Heart failure type: unspecified Qualified Code(s): I50.9 - Heart failure, unspecified PLAN: 1. Acute hyponatremia in a patient with unknown previous sodium level, remains the same Admitted with sodium of 114. No seizures or altered mental status and overnight serum sodium is 242, TSH is normal Likely secondary to hypervolemic hypotonic hyponatremia Continue on CHF protocol -Daily weights, strict I's and O's, IV Lasix, incentive spirometer Repeat BMP every 4h, nephrology consulted 2. Acute CHF, unknown previous EF, started on IV Lasix, daily weights, CHF protocol 2D echo pending 3. Hypomagnesemia, replaced 4. Newly diagnosed A. fib, rate controlled, continue on apixaban, atenolol 5. CAD status post CABG/hypertension/hyperlipidemia -all remained stable 6. Morbid obesity, BMI 39.2, lifestyle modification recommended 7. Reported acute metabolic encephalopathy, likely secondary to #1, resolved at time of admission Patient remains alert oriented x3. Charges/Coding Multi Select Codes Visit Charges Visit Charges: 03532 Subs Hosp L2 and 56099 Subs Hosp L3
[2021-02-16] MEDS: Furosemide 100 MG/10 ML Vial 80 MG IV ×2 (14:53→22:46)
[2021-02-16 15:53] LABS: Anion Gap 8 (5-15); BUN 16 mg/dL (7-18); BUN/Creat Ratio 10.2 RATIO (10-20); Calcium,Total 8.6 mg/dL (8.5-10.1); Chloride 80 mmol/L (98-107); Creatinine, Serum 1.57 mg/dL (0.70-1.30); EST Glomerular Filtration Rate 47 mL/min (>60); Est Glom Filt Rate - Afr Amer 57 mL/min (>60); Estimated Creatinine Clearance 38.75 ml/min; Glucose 152 mg/dL (74-106); Sodium Level 118 mmol/L (136-145)
[2021-02-16 19:33] LABS: Anion Gap 10 (5-15); BUN 18 mg/dL (7-18); Calcium,Total 8.9 mg/dL (8.5-10.1); Chloride 81 mmol/L (98-107); Creatinine, Serum 1.63 mg/dL (0.70-1.30); EST Glomerular Filtration Rate 45 mL/min (>60); Est Glom Filt Rate - Afr Amer 55 mL/min (>60); Estimated Creatinine Clearance 37.33 ml/min; Glucose 162 mg/dL (74-106); Sodium Level 117 mmol/L (136-145)
[2021-02-16] MEDS: Atorvastatin Calcium 20 MG Tablet PO (22:32)
[2021-02-16] MEDS: DiphenhydrAMINE 25 MG Capsule PO (22:33)
[2021-02-17] VITALS (13 sets, daily range): BP systolic 101–136; BP diastolic 59–75; PULSE 56–77; RESP 16–18; TEMP 36.5–37; O2SAT 98–100
[2021-02-17] MEDS: 0.9% Saline Lock 10 ML Syringe IV ×2 (05:50→13:09)
[2021-02-17] MEDS: Furosemide 100 MG/10 ML Vial 80 MG IV ×3 (05:50→21:59)
[2021-02-17 06:34] LABS: Anion Gap 9 (5-15); BUN 18 mg/dL (7-18); BUN/Creat Ratio 11.8 RATIO (10-20); Chloride 80 mmol/L (98-107); Creatinine, Serum 1.53 mg/dL (0.70-1.30); EST Glomerular Filtration Rate 49 mL/min (>60); Est Glom Filt Rate - Afr Amer 59 mL/min (>60); Estimated Creatinine Clearance 39.77 ml/min; Glucose 117 mg/dL (74-106); Potassium 3.2 mmol/L (3.5-5.1); Sodium Level 120 mmol/L (136-145)
[2021-02-17] MEDS: Ipratropium 0.5 MG/2.5 ML SOLUTION INHALATION ×4 (07:11→19:36)
[2021-02-17] MEDS: Famotidine 20 MG Tablet 40 MG PO (08:00)
[2021-02-17] MEDS: APIXABAN 5 MG TABLET PO ×2 (08:00→21:58)
[2021-02-17] MEDS: Lisinopril 20 MG Tablet PO (08:01)
[2021-02-17] MEDS: Isosorbide Mononitrate 60 MG Tablet PO (08:01)
[2021-02-17] MEDS: Atenolol 100 MG Tablet PO (08:03)
--- NOTE | 2021-02-17 09:11 | PN.HOSP_ITS ---
Subjective Subjective Patient was seen and examined. He feels much improved. He has been diuresing. His current weight is 98.9kg down from 107 kg. He denied any chest pain or dizziness. Objective Data Objective Data Vital Signs: Vital Signs Temp Pulse Resp BP Pulse Ox 97.8 F 64 18 136/75 H 98 02/17/21 02:18 02/17/21 07:20 02/17/21 07:11 02/17/21 02:18 02/17/21 02:18 Oxygen Delivery Method Room Air Weight: 98.928 kg Body Mass Index (BMI) 39.2 Intake & Output: Intake and Output for Last 24 Hours 02/15/21 02/16/21 02/17/21 23:59 23:59 23:59 Intake Total 431.67 / 431.67 1200 / 1350 150 / 150 Output Total 2049 / 2049 825 / 825 Balance 431.67 / 431.67 -850 / -700 -675 / -675 Lab / Micro Data Result Diagrams: 02/16/21 06:27 02/17/21 05:35 Labs: Laboratory Results - last 24 hr 02/16/21 11:00: Sodium 116 L*, Potassium 3.7, Chloride 78 L, Carbon Dioxide 28.0, Anion Gap 10, BUN 16, Creatinine 1.40 H, Estim Creat Clear Calc 43.46, Est GFR (MDRD) Af Amer 65, Est GFR (MDRD) Non-Af 54 L, BUN/Creatinine Ratio 11.4, Glucose 141 H, Calcium 8.8 02/16/21 14:50: Sodium 118 L*, Potassium 4.0, Chloride 80 L, Carbon Dioxide 30.0, Anion Gap 8, BUN 16, Creatinine 1.57 H, Estim Creat Clear Calc 38.75, Est GFR (MDRD) Af Amer 57 L, Est GFR (MDRD) Non-Af 47 L, BUN/Creatinine Ratio 10.2, Glucose 152 H, Calcium 8.6 02/16/21 18:48: Sodium 117 L*, Potassium 4.0, Chloride 81 L, Carbon Dioxide 26.0, Anion Gap 10, BUN 18, Creatinine 1.63 H, Estim Creat Clear Calc 37.33, Est GFR (MDRD) Af Amer 55 L, Est GFR (MDRD) Non-Af 45 L, BUN/Creatinine Ratio 11.0, Glucose 162 H, Calcium 8.9 02/17/21 05:35: Sodium 120 L, Potassium 3.2 L, Chloride 80 L, Carbon Dioxide 31.0, Anion Gap 9, BUN 18, Creatinine 1.53 H, Estim Creat Clear Calc 39.77, Est GFR (MDRD) Af Amer 59 L, Est GFR (MDRD) Non-Af 49 L, BUN/Creatinine Ratio 11.8, Glucose 117 H, Calcium 9.0 Radiography Diagnostic Testing: Radiology Impression Echocardiogram 02/15/21 16:56 Interpretation Summary The estimated ejection fraction is EF 50-55 %. Normal LV systolic Function Mild -Moderate MR No prior echo to compare Ordering Physician: Tia Mckenzie Performed By: Cornelia Bergeron RDCS Physical Exam Narrative Physical exam: General: Alert, Oriented x3, Cooperative, No apparent distress, Well developed, morbidly obese HEENT: Atraumatic Oral: Moist Mucosa Neck: Supple Lungs: Diminished, few crackles at the bases Cardiovascular: HS I+II, regular, no murmurs Abdomen: Bowel Sounds Present, Soft, Non Tender, obese Extremities: Bilateral lower extremity edema, generalized edema, +4, lower extremity feels woody from chronic venous stasis Assessment & Plan Assessment/Plan (1) Hyponatremia: (2) Hypomagnesemia: (3) New onset a-fib: (4) CHF exacerbation: QUALIFIERS: Heart failure type: unspecified Qualified Code(s): I50.9 - Heart failure, unspecified PLAN: Summary: 55-year-old male with past medical history of CAD status post CABG who comes in with weight gain, generalized weakness, recent diagnosis of atrial fibrillation and reported confusion. Patient was found to have a sodium of 114. 1. Acute hyponatremia in a patient with unknown previous sodium level, improving Secondary to hypervolemic hypotonic hyponatremia from CHF Admitted with sodium of 114. No seizures or altered mental status Admitting serum sodium is 242, TSH is normal Sodium is 120 this morning We will continue with fluid restrictions, CHF protocol -Daily weights, strict I's and O's, IV Lasix, incentive spirometer Repeat blood work in a.m. Nephrology following 2. Acute CHF, EF 50 to 55%, likely heart failure with preserved EF, decompensated Continue on IV Lasix - 80mg IV q8h daily weights, CHF protocol 3. Hypokalemia, replaced 4. Newly diagnosed A. fib, rate controlled, continue on apixaban, atenolol 5. CAD status post CABG/hypertension/hyperlipidemia -all remained stable 6. Morbid obesity, BMI 39.2, lifestyle modification recommended 7. Reported acute metabolic encephalopathy, likely secondary to #1, resolved at time of admission Patient remains alert oriented x3. Charges/Coding Visit Charges Inpatient E&M: 48750 Subs Hosp L2
[2021-02-17] MEDS: Potassium Chloride Oral Tablet 20 MEQ 60 MEQ PO (09:30)
[2021-02-17] MEDS: Multivitamins,Therapeutic Tablet 1 TABLET PO (11:16)
[2021-02-17] MEDS: DiphenhydrAMINE 25 MG Capsule PO (21:57)
[2021-02-17] MEDS: Atorvastatin Calcium 20 MG Tablet PO (21:58)
[2021-02-18] VITALS (9 sets, daily range): BP systolic 105–113; BP diastolic 59–81; PULSE 60–88; RESP 16–20; TEMP 36.5–36.8; O2SAT 97–100
[2021-02-18] MEDS: Furosemide 100 MG/10 ML Vial 80 MG IV ×2 (05:42→14:32)
[2021-02-18 05:53] LABS: Absolute Lymphocyte Count 1.09 X10^3/uL (0.83-4.51); Absolute Neutrophil Count 3.7 X10^3/uL (2.0-7.7); Basophil# 0.07 X10^3/uL; Basophil% 1.2 % (0-1); Eosinophil# 0.28 X10^3/uL; Eosinophils% 4.7 % (0-5); Lymphocyte # 1.09 X10^3/ul (0.83-4.51); Lymphocyte % 18.2 % (19-41); Mean Corp Hgb Conc 34.3 g/dL (32-36); Mean Corpuscular Hgb 30.2 pg (27.0-32.0); Mean Corpuscular Volume 87.9 fL (80-94); Mean Platelet Vol. 10.1 fl (6.2-12.0); Monocyte# 0.85 X10^3/uL; Monocyte% 14.2 % (0-10); NRBC Flagged by Analyzer 0 % (0-5); Neutrophil # 3.67 X10^3/uL (2.7-7.7); Neutrophil % 61.2 % (47-70); Platelet Count 219 K/mm3 (150-450); RBC Distribution Width CV 12.8 % (11.6-14.6); RBC Distribution Width SD 41.5 fl (35.1-43.9); Red Blood Count 3.98 M/mm3 (4.6-6.2)
[2021-02-18 06:23] LABS: ALB/GLOB Ratio 1.3 RATIO (0.9-2.4); AST(SGOT) 27 U/L (15-37); Alanine Aminotransfer ALT/SGPT 33 U/L (16-61); Albumin, Serum 4.2 g/dL (3.2-5.0); Alkaline Phosphatase 169 U/L (45-117); Anion Gap 10 (5-15); BUN 23 mg/dL (7-18); BUN/Creat Ratio 14.5 RATIO (10-20); Calcium,Total 8.9 mg/dL (8.5-10.1); Chloride 84 mmol/L (98-107); Creatinine, Serum 1.59 mg/dL (0.70-1.30); EST Glomerular Filtration Rate 46 mL/min (>60); Est Glom Filt Rate - Afr Amer 56 mL/min (>60); Estimated Creatinine Clearance 38.27 ml/min; Globulin 3.2 g/dL (2.2-4.2); Glucose 117 mg/dL (74-106); Magnesium 1.8 mg/dL (1.6-2.6); Potassium 3.5 mmol/L (3.5-5.1); Protein, Total 7.4 g/dL (6.4-8.2); Sodium Level 124 mmol/L (136-145)
[2021-02-18] MEDS: Ipratropium 0.5 MG/2.5 ML SOLUTION INHALATION ×2 (07:18→14:49)
[2021-02-18] MEDS: Famotidine 20 MG Tablet 40 MG PO (08:22)
[2021-02-18] MEDS: Atenolol 100 MG Tablet PO (08:23)
[2021-02-18] MEDS: Isosorbide Mononitrate 60 MG Tablet PO (08:23)
[2021-02-18] MEDS: APIXABAN 5 MG TABLET PO (08:23)
[2021-02-18] MEDS: Lisinopril 20 MG Tablet PO (08:23)
--- NOTE | 2021-02-18 09:57 | PN.RENAL_ITS ---
Subjective Subjective Following for hyponatremia and chronic kidney disease. The patient denies headaches, nausea, or ataxia. He is not confused. Edema of the lower extremity is improving. Objective Data Objective Data Vital Signs: Vital Signs Temp Pulse Resp BP Pulse Ox 98.2 F 73 18 110/81 H 100 02/18/21 08:19 02/18/21 08:19 02/18/21 08:19 02/18/21 08:19 02/18/21 08:19 Oxygen Delivery Method Room Air Weight: 94.5 kg Body Mass Index (BMI) 39.2 Intake & Output: Intake and Output for Last 24 Hours 02/16/21 02/17/21 02/18/21 23:59 23:59 23:59 Intake Total 1200 / 1350 1250 / 1250 Output Total 2049 / 2049 1325 / 1325 Balance -850 / -700 -75 / -75 Lab / Micro Data Result Diagrams: 02/18/21 05:20 02/18/21 05:20 Labs: Laboratory Results - last 24 hr 02/18/21 05:20: WBC 6.0, RBC 3.98 L, Hgb 12.0 L, Hct 35.0 L, MCV 87.9, MCH 30.2, MCHC 34.3 D, RDW Std Deviation 41.5, RDW Coeff of Gail 12.8, Plt Count 219, MPV 10.1, Immature Gran % (Auto) 0.500, Neut % (Auto) 61.2, Lymph % (Auto) 18.2 L, [place] % (Auto) 14.2 H, Eos % (Auto) 4.7, Baso % (Auto) 1.2 H, Absolute Neuts (auto) 3.7, Absolute Lymphs (auto) 1.09, Nucleated RBC % 0 02/18/21 05:20: Sodium 124 L, Potassium 3.5, Chloride 84 L, Carbon Dioxide 30.0, Anion Gap 10, BUN 23 H, Creatinine 1.59 H, Estim Creat Clear Calc 38.27, Est GFR (MDRD) Af Amer 56 L, Est GFR (MDRD) Non-Af 46 L, BUN/Creatinine Ratio 14.5, Glucose 117 H, Calcium 8.9, Magnesium 1.8, Total Bilirubin 1.90 H, AST 27, ALT 33, Alkaline Phosphatase 169 H, Total Protein 7.4, Albumin 4.2, Globulin 3.2, Albumin/Globulin Ratio 1.3 Physical Exam Narrative General: Patient is awake alert oriented. neck: No JVD Heart: S1-S2 RRR. Chest: Lungs are clear bilaterally. Abdomen: Obese no tenderness positive bowel sounds. Neuro: Awake alert oriented no focal deficits. Extremity: +3 edema of lower extremity with erythema Skin: No skin rash Assessment & Plan Assessment/Plan (1) Hyponatremia: (2) Hypomagnesemia: (3) Creatinine elevation: PLAN: Unclear if this is chronic or not. The patient is unaware of prior history of CKD. (4) New onset a-fib: PLAN: Plan: -Hyponatremia likely multifactorial from being on hydrochlorothiazide and CHF exacerbation. -Patient presented with a sodium 114 mmol/L. Patient was asymptomatic. Patient did not need 3% sodium chloride. -Agree with diuresis with Lasix. He is currently on 80 mg of Lasix IV 3 times a day. -Would not restart hydrochlorothiazide because of persistent hyponatremia. -Patient presented with a creatinine 1.3-1.4. Patient could also has ROSELINE from cardiorenal syndrome. Serum creatinine has been fluctuating around 1.5-1.6 in the past 3 days. There is no need to stop Lasix at this point. We will continue to monitor renal function panel while on diuretics. -I will arrange for outpatient follow-up once the patient is discharged for both hyponatremia and for chronic kidney disease.. Please call if any question. Thank you for the consult
--- NOTE | 2021-02-18 11:12 | PN.HOSP_ITS ---
Subjective Subjective 55-year-old male with past medical history of CAD status post CABG who comes in with weight gain, generalized weakness, recent diagnosis of atrial fibrillation and reported confusion. Patient was found to have a sodium of 114. Objective Data Objective Data Vital Signs: Vital Signs Temp Pulse Resp BP Pulse Ox 98.2 F 73 18 110/81 H 100 02/18/21 08:19 02/18/21 08:19 02/18/21 08:19 02/18/21 08:19 02/18/21 08:19 Oxygen Delivery Method Room Air Weight: 94.5 kg Body Mass Index (BMI) 39.2 Intake & Output: Intake and Output for Last 24 Hours 02/16/21 02/17/21 02/18/21 23:59 23:59 23:59 Intake Total 1200 / 1350 1250 / 1250 Output Total 2049 / 2049 1325 / 1325 Balance -850 / -700 -75 / -75 Lab / Micro Data Result Diagrams: 02/18/21 05:20 02/18/21 05:20 Labs: Laboratory Results - last 24 hr 02/18/21 05:20: WBC 6.0, RBC 3.98 L, Hgb 12.0 L, Hct 35.0 L, MCV 87.9, MCH 30.2, MCHC 34.3 D, RDW Std Deviation 41.5, RDW Coeff of Gail 12.8, Plt Count 219, MPV 10.1, Immature Gran % (Auto) 0.500, Neut % (Auto) 61.2, Lymph % (Auto) 18.2 L, [place] % (Auto) 14.2 H, Eos % (Auto) 4.7, Baso % (Auto) 1.2 H, Absolute Neuts (auto) 3.7, Absolute Lymphs (auto) 1.09, Nucleated RBC % 0 02/18/21 05:20: Sodium 124 L, Potassium 3.5, Chloride 84 L, Carbon Dioxide 30.0, Anion Gap 10, BUN 23 H, Creatinine 1.59 H, Estim Creat Clear Calc 38.27, Est GFR (MDRD) Af Amer 56 L, Est GFR (MDRD) Non-Af 46 L, BUN/Creatinine Ratio 14.5, Glucose 117 H, Calcium 8.9, Magnesium 1.8, Total Bilirubin 1.90 H, AST 27, ALT 33, Alkaline Phosphatase 169 H, Total Protein 7.4, Albumin 4.2, Globulin 3.2, Albumin/Globulin Ratio 1.3 Physical Exam Narrative GENERAL: cooperative HEENT: Atraumatic; EYES; Anicteric, Normal Conjunctiva NECK; supple, normal thyroid, RESPIRATORY: Diminished to auscultation CARDIOVASCULAR: Regular S1 S2, GI: soft, normoactive bowel sounds, : No Renal angle tenderness; EXTREMITIES: edema, no clubbing, MUSCULOSKELETAL: no muscle waisting NEURO: Awake; no lateralizing signs. SKIN: No Rash PSYCH; Flat affect Assessment & Plan Assessment/Plan (1) Hyponatremia: (2) Hypomagnesemia: (3) New onset a-fib: (4) CHF exacerbation: QUALIFIERS: Heart failure type: unspecified Qualified Code(s): I5 0.9 - Heart failure, unspecified PLAN: 55-year-old male with past medical history of CAD status post CABG who comes in with weight gain, generalized weakness, recent diagnosis of atrial fibrillation and reported confusion. Patient was found to have a sodium of 114. 1. Acute hyponatremia ?Secondary to fluid overload status (hypervolemic hyponatremia) patient was s ymptomatic on admission presented with generalized weakness and confusion. Sodium levels on admission was 114 managed with diuretics serial level as of today 02/18/2021 was 124. Consult was placed and Case was discussed with nephrology Dr. Deshpande plans for patient to be discharged point failure level is above 125 2. Acute congestive heart failure with preserved ejection fraction EF was estimated to be 50 to 55%. Patient placed on diuretics currently monitoring response to therapy with daily weights strict input and output. Patient was also placed on low-sodium diet in addition to fluid restriction 3. Coronary artery disease status post CABG ?Currently stable with no evidence of acute ischemia 4. Newly diagnosed A. fib ?Rate controlled currently on atenolol for rate control and apixaban for systemic anticoagulation 5. Morbid obesity with BMI of 35.8 ?Weight loss advised 6. Hypertension - Blood pressure controlled, home medications continued with dose adjustment as needed 7. Dyslipidemia -Patient is on statin therapy, continued at home dose Hypokalemia ?Corrected per protocol 9. Acute metabolic encephalopathy secondary to hyponatremia resolved 10. DVT prophylaxis ?Patient is on apixaban Charges/Coding Visit Charges Inpatient E&M: 53830 Subs Hosp L2
[2021-02-18] MEDS: Multivitamins,Therapeutic Tablet 1 TABLET PO (11:56)
[2021-02-18 13:32] LABS: Anion Gap 6 (5-15); BUN 24 mg/dL (7-18); BUN/Creat Ratio 14.5 RATIO (10-20); Calcium,Total 9.2 mg/dL (8.5-10.1); Chloride 85 mmol/L (98-107); Creatinine, Serum 1.66 mg/dL (0.70-1.30); EST Glomerular Filtration Rate 44 mL/min (>60); Est Glom Filt Rate - Afr Amer 53 mL/min (>60); Estimated Creatinine Clearance 36.65 ml/min; Glucose 136 mg/dL (74-106); Potassium 3.6 mmol/L (3.5-5.1); Sodium Level 125 mmol/L (136-145)
--- NOTE | 2021-02-18 14:42 | PCM.DC.SUM ---
Providers Date of Admission: 02/15/21 Primary Care Physician: FRANCISCA TANNER Consultations 02/15/21 15:06 Consult: Nephrology Routine Consulting Provider: Juan F Rosenthal Reason for Consult: Acute hyponatremia EMERGENT Consult: No MD Notified: Yes Date Notified: 02/15/21 Time Notified: 15:13 Method of Notification: Answering Service Reason For Visit: ACUTE HYPONATREMIA Diagnosis Discharge Diagnosis (1) Hyponatremia: Status: Acute Code(s): E87.1 - Hypo-osmolality and hyponatremia (2) Hypomagnesemia: Status: Acute Code(s): E83.42 - Hypomagnesemia (3) New onset a-fib: Status: Acute Code(s): I48.91 - Unspecified atrial fibrillation (4) CHF exacerbation: Status: Chronic Code(s): I50.9 - Heart failure, unspecified Qualifiers: Heart failure type: unspecified Qualified Code(s): I50.9 - Heart failure, unspecified Medications at Discharge Home Medications Eliquis 5 mg PO BID 02/15/21 Tart Cason Extract 1,000 mg PO LUNCH 02/15/21 amlodipine 10 mg PO DAILY 02/15/21 atenolol 100 mg PO DAILY 02/15/21 atorvastatin 20 mg PO DAILY 02/15/21 diphenhydramine HCl 50 mg QHS 02/15/21 famotidine 20 mg PO BID 02/15/21 isosorbide mononitrate 60 mg PO DAILY 02/15/21 lisinopril 20 mg PO DAILY 02/15/21 multivitamin 1 tab PO LUNCH 02/15/21 spironolactone 25 mg PO DAILY 02/15/21 furosemide [Lasix] 80 mg PO BID #120 tab 02/18/21 potassium chloride [Klor-Con M20] 20 meq PO DAILY #60 tab 02/18/21 Hospital Course Summary of Care Provided Minutes Spent on Discharge: 35 [facility] [id number] [place] [address] Progress Note - Cqtfkhnlsje66/23/21 1112MR#: [id number]:[id number]:RONAK GLEASONRep #:[id number]: [id number]: Rachid Fam MDPCP:FRANCISCA TANNER Status:ADM INLocation: [id number] Subjective Subjective 55-year-old male with past medical history of CAD status post CABG who comes in with weight gain, generalized weakness, recent diagnosis of atrial fibrillation and reported confusion. Patient was found to have a sodium of 114. Objective Data Objective Data Vital Signs: Vital Signs Temp Pulse Resp BP Pulse Ox 98.2 F 73 18 110/81 H 100 02/18/21 08:19 02/18/21 08:19 02/18/21 08:19 02/18/21 08:19 02/18/21 08:19 Oxygen Delivery Method Room Air Weight: 94.5 kg Body Mass Index (BMI) 39.2 Intake & Output:Intake and Output for Last 24 Hours 02/16/21 02/17/21 02/18/21 23:59 23:59 23:59 Intake Total 1200 / 1350 1250 / 1250 Output Total 2049 / 2049 1325 / 1325 Balance -850 / -700 -75 / -75 Lab / Micro Data Result Diagrams: 02/18/21 05:20 document embedded image 02/18/21 05:20 document embedded image Labs:Laboratory Results - last 24 hr 02/18/21 05:20: WBC 6.0, RBC 3.98 L, Hgb 12.0 L, Hct 35.0 L, MCV 87.9, MCH 30.2, MCHC 34.3 D, RDW Std Deviation 41.5, RDW Coeff of Gail 12.8, Plt Count 219, MPV 10.1, Immature Gran % (Auto) 0.500, Neut % (Auto) 61.2, Lymph % (Auto) 18.2 L, [place] % (Auto) 14.2 H, Eos % (Auto) 4.7, Baso % (Auto) 1.2 H, Absolute Neuts (auto) 3.7, Absolute Lymphs (auto) 1.09, Nucleated RBC % 0 02/18/21 05:20: Sodium 124 L, Potassium 3.5, Chloride 84 L, Carbon Dioxide 30.0, Anion Gap 10, BUN 23 H, Creatinine 1.59 H, Estim Creat Clear Calc 38.27, Est GFR (MDRD) Af Amer 56 L, Est GFR (MDRD) Non-Af 46 L, BUN/Creatinine Ratio 14.5, Glucose 117 H, Calcium 8.9, Magnesium 1.8, Total Bilirubin 1.90 H, AST 27, ALT 33, Alkaline Phosphatase 169 H, Total Protein 7.4, Albumin 4.2, Globulin 3.2, Albumin/Globulin Ratio 1.3 Physical Exam Narrative GENERAL: cooperative HEENT: Atraumatic; EYES; Anicteric, Normal Conjunctiva NECK; supple, normal thyroid, RESPIRATORY: Diminished to auscultation CARDIOVASCULAR: Regular S1 S2, GI: soft, normoactive bowel sounds, : No Renal angle tenderness; EXTREMITIES: edema, no clubbing, MUSCULOSKELETAL: no muscle waisting NEURO: Awake; no lateralizing signs. SKIN: No Rash PSYCH; Flat affect Assessment & Plan Assessment/Plan (1) Hyponatremia: (2) Hypomagnesemia: (3) New onset a-fib: (4) CHF exacerbation: QUALIFIERS: Heart failure type: unspecified Qualified Code(s): I50.9 - Heart failure, unspecified PLAN: 55-year-old male with past medical history of CAD status post CABG who comes in with weight gain, generalized weakness, recent diagnosis of atrial fibrillation and reported confusion. Patient was found to have a sodium of 114. 1. Acute hyponatremia ?Secondary to fluid overload status (hypervolemic hyponatremia) patient was symptomatic on admission presented with generalized weakness and confusion. Sodium levels on admission was 114 managed with diuretics serial level as of today 02/18/2021 was 124. Consult was placed and Case was discussed with nephrology Dr. Deshpande plans for patient to be discharged point failure level is above 125 -Repeat sodium levels came up up to 125. Patient was discharged home on Lasix 80 mg p.o. twice daily Aldactone as well as potassium supplementation. Patient to follow-up with Dr. Deshpande in 2 to 3 days for repeat lab work. 2. Acute congestive heart failure with preserved ejection fraction EF was estimated to be 50 to 55%. Patient placed on diuretics currently monitoring response to therapy with daily weights strict input and output. Patient was also placed on low-sodium diet in addition to fluid restriction 3. Coronary artery disease status post CABG ?Currently stable with no evidence of acute ischemia 4. Newly diagnosed A. fib ?Rate controlled currently on atenolol for rate control and apixaban for systemic anticoagulation 5. Morbid obesity with BMI of 35.8 ?Weight loss advised 6. Hypertension - Blood pressure controlled, home medications continued with dose adjustment as needed 7. Dyslipidemia -Patient is on statin therapy, continued at home dose Hypokalemia ?Corrected per protocol 9. Acute metabolic encephalopathy secondary to hyponatremia resolved 10. DVT prophylaxis ?Patient is on apixaban Physical Exam Narrative GENERAL: cooperative HEENT: Atraumatic; EYES; Anicteric, Normal Conjunctiva NECK; supple, normal thyroid, RESPIRATORY: Diminished to auscultation CARDIOVASCULAR: Regular S1 S2, GI: soft, normoactive bowel sounds, : No Renal angle tenderness; EXTREMITIES: edema, no clubbing, MUSCULOSKELETAL: no muscle waisting NEURO: Awake; no lateralizing signs. SKIN: No Rash PSYCH; Flat affect Weight / BMI Weight Weight: 94.5 kg Body Mass Index (BMI) 39.2 ABG / Lab / Microbiology Data Result Diagrams: 02/18/21 05:20 02/18/21 12:48 Laboratory: Laboratory Results - last 24 hr 02/18/21 05:20: WBC 6.0, RBC 3.98 L, Hgb 12.0 L, Hct 35.0 L, MCV 87.9, MCH 30.2, MCHC 34.3 D, RDW Std Deviation 41.5, RDW Coeff of Gail 12.8, Plt Count 219, MPV 10.1, Immature Gran % (Auto) 0.500, Neut % (Auto) 61.2, Lymph % (Auto) 18.2 L, [place] % (Auto) 14.2 H, Eos % (Auto) 4.7, Baso % (Auto) 1.2 H, Absolute Neuts (auto) 3.7, Absolute Lymphs (auto) 1.09, Nucleated RBC % 0 02/18/21 05:20: Sodium 124 L, Potassium 3.5, Chloride 84 L, Carbon Dioxide 30.0, Anion Gap 10, BUN 23 H, Creatinine 1.59 H, Estim Creat Clear Calc 38.27, Est GFR (MDRD) Af Amer 56 L, Est GFR (MDRD) Non-Af 46 L, BUN/Creatinine Ratio 14.5, Glucose 117 H, Calcium 8.9, Magnesium 1.8, Total Bilirubin 1.90 H, AST 27, ALT 33, Alkaline Phosphatase 169 H, Total Protein 7.4, Albumin 4.2, Globulin 3.2, Albumin/Globulin Ratio 1.3 02/18/21 12:48: Sodium 125 L, Potassium 3.6, Chloride 85 L, Carbon Dioxide 34.0 H, Anion Gap 6, BUN 24 H, Creatinine 1.66 H, Estim Creat Clear Calc 36.65, Est GFR (MDRD) Af Amer 53 L, Est GFR (MDRD) Non-Af 44 L, BUN/Creatinine Ratio 14.5, Glucose 136 H, Calcium 9.2 D/C Instructions Discharge Diet: No restrictions Discharge Activity: Return to Normal Activity Call your doctor if you observe: Fever of 101 or Higher, Shortness of breath, Fainting spells and Chest pain Meaningful Use Info Meaningful Use Diagnoses (Choose all that apply): None applicable Discharge Plan Admission Admit Date/Time: 02/15/21 14:33 Primary Reason for Your Visit: Hyponatremia Attending Provider: Rachid Fam Consulting Providers: Juan F Rosenthal Discharge Orders/Prescriptions Prescriptions: New potassium chloride [Klor-Con M20] 20 mEq Tablet,Er Particles/Crystals 20 meq PO DAILY Qty: 60 RF: 0 furosemide [Lasix] 80 mg tablet 80 mg PO BID Qty: 120 RF: 0 Continued atorvastatin 20 mg tablet 20 mg PO DAILY RF: 0 atenolol 100 mg tablet 100 mg PO DAILY RF: 0 lisinopril 20 mg tablet 20 mg PO DAILY RF: 0 famotidine 40 mg Tablet 20 mg PO BID RF: 0 spironolactone 25 mg tablet 25 mg PO DAILY RF: 0 isosorbide mononitrate 60 mg tablet extended release 24 hr 60 mg PO DAILY RF: 0 amlodipine 10 mg tablet 10 mg PO DAILY RF: 0 Eliquis 5 mg tablet 5 mg PO BID RF: 0 multivitamin Tablet 1 tab PO LUNCH RF: 0 Tart Cason Extract 1,000 mg Capsule 1,000 mg PO LUNCH RF: 0 diphenhydramine HCl 25 mg tablet 50 mg QHS RF: 0 Discontinued hydrochlorothiazide 25 mg tablet 25 mg PO DAILY RF: 0 furosemide 20 mg tablet 60 mg PO DAILY RF: 0 Referrals / Follow Up: FRANCISCA TANNER [Other] FRANCISCA TANNER [Other] - Within 1 Week Linda Young MD [STAFF PHYSICIAN] - Within 1 Week Disposition Disposition (needs filled in before D/C Order can be placed): Home, Self Care Charges/Coding Visit Charges Inpatient E&M: 33208 Disch Hosp
--- NOTE | 2021-02-18 15:47 | PHA.DC.MC ---
Pharmacy Service has performed discharge medication reconciliation and counseling for this patient. 1. POTASSIUM CHLORIDE 20MEQ PO DAILY The patient's discharge medication list was reviewed for discrepancies and discrepancies were resolved. Home Medications Eliquis 5 mg PO BID 02/15/21 Tart Cason Extract 1,000 mg PO LUNCH 02/15/21 amlodipine 10 mg PO DAILY 02/15/21 atenolol 100 mg PO DAILY 02/15/21 atorvastatin 20 mg PO DAILY 02/15/21 diphenhydramine HCl 50 mg QHS 02/15/21 famotidine 20 mg PO BID 02/15/21 isosorbide mononitrate 60 mg PO DAILY 02/15/21 lisinopril 20 mg PO DAILY 02/15/21 multivitamin 1 tab PO LUNCH 02/15/21 spironolactone 25 mg PO DAILY 02/15/21 furosemide [Lasix] 80 mg PO BID #120 tab 02/18/21 potassium chloride [Klor-Con M20] 20 meq PO DAILY #60 tab 02/18/21 The patient was counseled on the following discharge medications and changes in medications for homegoing were reviewed. The Reason for Use, instructions for use, and potential side effects were reviewed for all new medications. The patient's questions regarding all of their medications were answered. The patient was able to verbally demonstrate an understanding of their discharge medications.
== END 2021-02-18 16:37 | disposition home or self-care (01) | DRG 291 ==
LOC: ED 14:33 → PCU 14:55
PROVIDERS: Hospitalist; Admitting Provider Internal Medicine; Emergency Provider Emergency Medicine; Visit Provider Internal Medicine
DX: I11.0 Hypertensive heart disease with heart failure (principal); G93.41 Metabolic encephalopathy; I50.31 Acute diastolic (congestive) heart failure; E87.1 Hypo-osmolality and hyponatremia; I25.10 Atherosclerotic heart disease of native coronary artery without angina pectoris; I48.91 Unspecified atrial fibrillation; E83.42 Hypomagnesemia; E66.01 Morbid (severe) obesity due to excess calories; Z68.39 Body mass index [BMI] 39.0-39.9, adult; E78.5 Hyperlipidemia, unspecified; Z95.1 Presence of aortocoronary bypass graft; G47.33 Obstructive sleep apnea (adult) (pediatric); K21.9 Gastro-esophageal reflux disease without esophagitis; E87.6 Hypokalemia
CPT/HCPCS: 36415; 71045; 80048; 80053; 81001; 82570; 83735; 83880; 83930; 83935; 84100; 84300; 84443; 84484; 85025; 93005; 93306; 94640; 97802; 99285; J7030; Q9957; A4216; J1940; J3490

== ENCOUNTER → 2021-02-21 11:11 | Outpatient (CLI) | payer MEDICARE, SELFPAY ==
[2021-02-21 11:50] LABS: Albumin, Serum 4.3 g/dL (3.2-5.0); BUN 23 mg/dL (7-18); BUN/Creat Ratio 11.9 RATIO (10-20); Calcium,Total 9.9 mg/dL (8.5-10.1); Chloride 90 mmol/L (98-107); Creatinine, Serum 1.94 mg/dL (0.70-1.30); EST Glomerular Filtration Rate 37 mL/min (>60); Est Glom Filt Rate - Afr Amer 45 mL/min (>60); Glucose 134 mg/dL (74-106); Phosphorus 3.9 mg/dL (2.5-4.9); Potassium 4.1 mmol/L (3.5-5.1); Sodium Level 129 mmol/L (136-145)
== END ==
PROVIDERS: Referring Provider Internal Medicine Nephrology; Visit Provider Internal Medicine Nephrology
DX: E87.1 Hypo-osmolality and hyponatremia (principal)
CPT/HCPCS: 36415; 80069

== ENCOUNTER → 2021-03-15 11:46 | Outpatient (CLI) | payer MEDICARE, SELFPAY ==
[2021-03-15 11:54] LABS: Bacteria 0 SEEN /hpf (None Seen); Mucous, Urine 0 SEEN /hpf (<or=2+); Red Blood Cells-Urine 0 SEEN /hpf (0-5); Squamous Epithelial Cells - UA 0 SEEN /hpf (0-5); White Blood Cells 0 SEEN /hpf (0-5)
[2021-03-15 13:02] LABS: Hematocrit 41.6 % (40-54); Hemoglobin 13.9 g/dL (13.0-16.5); Mean Corp Hgb Conc 33.4 g/dL (32-36); Mean Corpuscular Hgb 29.6 pg (27.0-32.0); Mean Corpuscular Volume 88.7 fL (80-94); Mean Platelet Vol. 9.9 fl (6.2-12.0); Platelet Count 309 K/mm3 (150-450); RBC Distribution Width CV 12.6 % (11.6-14.6); RBC Distribution Width SD 41.1 fl (35.1-43.9); Red Blood Count 4.69 M/mm3 (4.6-6.2); White Blood Count 7.3 K/mm3 (4.4-11.0)
[2021-03-15 13:05] LABS: Color, Urine Yellow (Yellow); Glucose, Dipstick Normal (Normal); Ketone-Dipstick Negative (Negative); Leukocyte Esterase-Dipstick Negative /ul (Negative); Nitrite-Dipstick Negative (Negative); Occult Blood-Urine Negative /ul (Negative); Protein-Dipstick Negative (Negative); Urine Bilirubin Dipstick Negative (Negative); Urine Clarity Clear (Clear); Urine Urobilinogen Normal (Normal)
[2021-03-15 13:21] LABS: Albumin, Serum 4.1 g/dL (3.2-5.0); BUN 32 mg/dL (7-18); BUN/Creat Ratio 14.3 RATIO (10-20); Calcium,Total 9.9 mg/dL (8.5-10.1); Chloride 96 mmol/L (98-107); Creatinine, Serum 2.24 mg/dL (0.70-1.30); EST Glomerular Filtration Rate 31 mL/min (>60); Est Glom Filt Rate - Afr Amer 38 mL/min (>60); Glucose 149 mg/dL (74-106); Magnesium 2.6 mg/dL (1.6-2.6); Phosphorus 3.8 mg/dL (2.5-4.9); Potassium 4.3 mmol/L (3.5-5.1); Sodium Level 132 mmol/L (136-145)
[2021-03-15 13:25] LABS: Microalbumin,Random Urine < 5.0 mg/L (NO RANGE EST.); Protein, Urine (Random) < 6.0 mg/dL (<11.9)
== END ==
PROVIDERS: Visit Provider Nurse Practitioner Adult Health
DX: N18.32 Chronic kidney disease, stage 3b (principal); E83.42 Hypomagnesemia
CPT/HCPCS: 36415; 80069; 81001; 82043; 82570; 83735; 84156; 85027

== ENCOUNTER → 2021-04-15 14:09 | Outpatient (CLI) | payer MEDICARE, SELFPAY ==
[2021-04-15 15:53] LABS: Anion Gap 8 (5-15); BUN 27 mg/dL (7-18); BUN/Creat Ratio 12.9 RATIO (10-20); Calcium,Total 9.9 mg/dL (8.5-10.1); Chloride 101 mmol/L (98-107); EST Glomerular Filtration Rate 34 mL/min (>60); Est Glom Filt Rate - Afr Amer 41 mL/min (>60); Glucose 142 mg/dL (74-106); Potassium 4.5 mmol/L (3.5-5.1); Sodium Level 134 mmol/L (136-145)
== END ==
DX: N17.9 Acute kidney failure, unspecified (principal)
CPT/HCPCS: 36415; 80048

== ENCOUNTER 2021-05-16 14:31 | Outpatient (RCR) | payer MEDICARE, SELFPAY ==
[2021-05-16 16:05] LABS: Anion Gap 9 (5-15); BUN 31 mg/dL (7-18); BUN/Creat Ratio 15.3 RATIO (10-20); Calcium,Total 9.9 mg/dL (8.5-10.1); Chloride 98 mmol/L (98-107); Creatinine, Serum 2.03 mg/dL (0.70-1.30); EST Glomerular Filtration Rate 35 mL/min (>60); Est Glom Filt Rate - Afr Amer 42 mL/min (>60); Glucose 135 mg/dL (74-106); Potassium 4.4 mmol/L (3.5-5.1); Sodium Level 133 mmol/L (136-145)
== END 2021-05-28 18:00 | disposition home or self-care (01) ==
LOC: LAB 14:31
DX: N17.9 Acute kidney failure, unspecified (principal)
CPT/HCPCS: 36415; 80048

== ENCOUNTER 2021-06-18 11:59 | Outpatient (RCR) | payer MEDICARE, SELFPAY ==
[2021-06-18 13:00] LABS: Anion Gap 9 (5-15); BUN 24 mg/dL (7-18); BUN/Creat Ratio 13.3 RATIO (10-20); Calcium,Total 9.7 mg/dL (8.5-10.1); Chloride 102 mmol/L (98-107); EST Glomerular Filtration Rate 40 mL/min (>60); Est Glom Filt Rate - Afr Amer 49 mL/min (>60); Glucose 130 mg/dL (74-106); Potassium 4.3 mmol/L (3.5-5.1); Sodium Level 135 mmol/L (136-145)
== END 2021-06-29 18:00 | disposition home or self-care (01) ==
LOC: LAB 11:59
DX: N17.9 Acute kidney failure, unspecified (principal)
CPT/HCPCS: 36415; 80048

== ENCOUNTER 2021-07-17 12:00 | Outpatient (RCR) | payer MEDICARE, SELFPAY ==
[2021-07-17 12:56] LABS: Anion Gap 8 (5-15); BUN 17 mg/dL (7-18); BUN/Creat Ratio 10.4 RATIO (10-20); Calcium,Total 9.8 mg/dL (8.5-10.1); Chloride 101 mmol/L (98-107); Creatinine, Serum 1.64 mg/dL (0.70-1.30); EST Glomerular Filtration Rate 45 mL/min (>60); Est Glom Filt Rate - Afr Amer 54 mL/min (>60); Glucose 132 mg/dL (74-106); Potassium 4.4 mmol/L (3.5-5.1); Sodium Level 135 mmol/L (136-145)
== END 2021-07-29 18:00 | disposition home or self-care (01) ==
LOC: LAB 12:00
DX: N17.9 Acute kidney failure, unspecified (principal)
CPT/HCPCS: 36415; 80048

== ENCOUNTER 2021-08-14 11:57 | Outpatient (RCR) | payer MEDICARE, SELFPAY ==
[2021-08-14 13:13] LABS: Anion Gap 5 (5-15); BUN 29 mg/dL (7-18); BUN/Creat Ratio 13.5 RATIO (10-20); Calcium,Total 9.7 mg/dL (8.5-10.1); Chloride 95 mmol/L (98-107); Creatinine, Serum 2.15 mg/dL (0.70-1.30); EST Glomerular Filtration Rate 33 mL/min (>60); Est Glom Filt Rate - Afr Amer 40 mL/min (>60); Glucose 117 mg/dL (74-106); Potassium 4.8 mmol/L (3.5-5.1); Sodium Level 130 mmol/L (136-145)
== END 2021-08-14 18:00 | disposition home or self-care (01) ==
LOC: LAB 11:57
DX: N17.9 Acute kidney failure, unspecified (principal)
CPT/HCPCS: 36415; 80048

== ENCOUNTER 2021-09-11 11:37 | Outpatient (RCR) | payer MEDICARE, SELFPAY ==
[2021-09-11 12:56] LABS: Anion Gap 9 (5-15); BUN 19 mg/dL (7-18); BUN/Creat Ratio 9.6 RATIO (10-20); Calcium,Total 10.8 mg/dL (8.5-10.1); Chloride 95 mmol/L (98-107); Creatinine, Serum 1.98 mg/dL (0.70-1.30); EST Glomerular Filtration Rate 36 mL/min (>60); Est Glom Filt Rate - Afr Amer 44 mL/min (>60); Glucose 188 mg/dL (74-106); Potassium 4.2 mmol/L (3.5-5.1); Sodium Level 133 mmol/L (136-145)
== END 2021-09-26 18:00 | disposition home or self-care (01) ==
LOC: LAB 11:37
DX: N17.9 Acute kidney failure, unspecified (principal)
CPT/HCPCS: 36415; 80048

== ENCOUNTER 2021-10-09 11:35 | Outpatient (RCR) | payer MEDICARE, SELFPAY ==
[2021-10-09 13:57] LABS: Anion Gap 9 (5-15); BUN 17 mg/dL (7-18); BUN/Creat Ratio 9.3 RATIO (10-20); Calcium,Total 9.8 mg/dL (8.5-10.1); Chloride 99 mmol/L (98-107); Creatinine, Serum 1.83 mg/dL (0.70-1.30); EST Glomerular Filtration Rate 39 mL/min (>60); Est Glom Filt Rate - Afr Amer 48 mL/min (>60); Glucose 163 mg/dL (74-106); Potassium 3.8 mmol/L (3.5-5.1); Sodium Level 133 mmol/L (136-145)
== END 2021-10-09 18:00 | disposition home or self-care (01) ==
LOC: LAB 11:35
DX: N17.9 Acute kidney failure, unspecified (principal)
CPT/HCPCS: 36415; 80048

== ENCOUNTER 2021-11-06 11:47 | Outpatient (RCR) | payer MEDICARE, SELFPAY ==
[2021-11-06 12:57] LABS: Hemoglobin A1c 5.6 % (3.8-5.6)
[2021-11-06 13:12] LABS: Anion Gap 10 (5-15); BUN 19 mg/dL (7-18); BUN/Creat Ratio 10.4 RATIO (10-20); Calcium,Total 10.3 mg/dL (8.5-10.1); Chloride 99 mmol/L (98-107); Creatinine, Serum 1.83 mg/dL (0.70-1.30); EST Glomerular Filtration Rate 39 mL/min (>60); Est Glom Filt Rate - Afr Amer 48 mL/min (>60); Glucose 157 mg/dL (74-106); Potassium 3.9 mmol/L (3.5-5.1); Sodium Level 133 mmol/L (136-145)
== END 2021-11-06 18:00 | disposition home or self-care (01) ==
LOC: LAB 11:47
DX: N17.9 Acute kidney failure, unspecified (principal); E11.9 Type 2 diabetes mellitus without complications
CPT/HCPCS: 36415; 80048; 83036

== ENCOUNTER 2021-12-11 11:31 | Outpatient (RCR) | payer MEDICARE, SELFPAY ==
[2021-12-11 12:56] LABS: Anion Gap 10 (5-15); BUN 16 mg/dL (7-18); BUN/Creat Ratio 8.9 RATIO (10-20); Calcium,Total 9.4 mg/dL (8.5-10.1); Chloride 102 mmol/L (98-107); EST Glomerular Filtration Rate 40 mL/min (>60); Est Glom Filt Rate - Afr Amer 49 mL/min (>60); Glucose 121 mg/dL (74-106); Sodium Level 136 mmol/L (136-145)
== END 2021-12-11 23:59 | disposition home or self-care (01) ==
LOC: LAB 11:31
DX: E11.9 Type 2 diabetes mellitus without complications (principal)
CPT/HCPCS: 36415; 80048

== ENCOUNTER 2022-01-08 12:13 | Outpatient (RCR) | payer MEDICARE, SELFPAY ==
[2022-01-08 13:30] LABS: Anion Gap 7 (5-15); BUN 18 mg/dL (7-18); BUN/Creat Ratio 9.3 RATIO (10-20); Calcium,Total 9.6 mg/dL (8.5-10.1); Chloride 102 mmol/L (98-107); Creatinine, Serum 1.94 mg/dL (0.70-1.30); EST Glomerular Filtration Rate 37 mL/min (>60); Est Glom Filt Rate - Afr Amer 45 mL/min (>60); Glucose 131 mg/dL (74-106); Sodium Level 134 mmol/L (136-145)
== END 2022-01-26 01:52 | disposition home or self-care (01) ==
LOC: LAB 12:13
DX: E11.9 Type 2 diabetes mellitus without complications (principal); N17.9 Acute kidney failure, unspecified
CPT/HCPCS: 36415; 80048

== ENCOUNTER 2022-08-28 14:27 | Outpatient (RCR) | payer MEDICARE, SELFPAY ==
[2022-08-28 15:25] LABS: Anion Gap 10 (5-15); BUN 16 mg/dL (7-18); Calcium,Total 9.8 mg/dL (8.5-10.1); Chloride 100 mmol/L (98-107); Creatinine, Serum 1.78 mg/dL (0.70-1.30); EST Glomerular Filtration Rate 41 mL/min (>60); Est Glom Filt Rate - Afr Amer 49 mL/min (>60); Glucose 143 mg/dL (74-106); Potassium 4.4 mmol/L (3.5-5.1); Sodium Level 135 mmol/L (136-145)
== END 2022-09-26 21:13 | disposition home or self-care (01) ==
LOC: LAB 14:27
DX: E11.9 Type 2 diabetes mellitus without complications (principal); N28.9 Disorder of kidney and ureter, unspecified
CPT/HCPCS: 36415; 80048

== ENCOUNTER 2022-10-01 11:36 | Outpatient (RCR) | payer MEDICARE, SELFPAY ==
[2022-10-01 13:12] LABS: Hemoglobin A1c 5.9 % (3.8-5.6)
[2022-10-01 13:21] LABS: Anion Gap 9 (5-15); BUN 12 mg/dL (7-18); BUN/Creat Ratio 7.3 RATIO (10-20); Calcium,Total 9.8 mg/dL (8.5-10.1); Chloride 99 mmol/L (98-107); Creatinine, Serum 1.64 mg/dL (0.70-1.30); EST Glomerular Filtration Rate 45 mL/min (>60); Est Glom Filt Rate - Afr Amer 54 mL/min (>60); Glucose 165 mg/dL (74-106); Potassium 3.9 mmol/L (3.5-5.1); Sodium Level 133 mmol/L (136-145)
== END 2022-10-26 00:23 | disposition home or self-care (01) ==
LOC: LAB 11:36
DX: E11.9 Type 2 diabetes mellitus without complications (principal); N17.9 Acute kidney failure, unspecified
CPT/HCPCS: 36415; 80048; 83036

== ENCOUNTER 2022-10-28 10:27 | Outpatient (RCR) | payer MEDICARE, SELFPAY ==
[2022-10-28 12:01] LABS: Anion Gap 11 (5-15); BUN 14 mg/dL (7-18); BUN/Creat Ratio 7.9 RATIO (10-20); Calcium,Total 10.3 mg/dL (8.5-10.1); Chloride 101 mmol/L (98-107); Creatinine, Serum 1.78 mg/dL (0.70-1.30); EST Glomerular Filtration Rate 41 mL/min (>60); Est Glom Filt Rate - Afr Amer 49 mL/min (>60); Glucose 116 mg/dL (74-106); Potassium 3.7 mmol/L (3.5-5.1); Sodium Level 136 mmol/L (136-145)
== END 2022-10-28 11:30 | disposition home or self-care (01) ==
LOC: LAB 10:27
DX: E11.9 Type 2 diabetes mellitus without complications (principal); N17.9 Acute kidney failure, unspecified
CPT/HCPCS: 36415; 80048

== ENCOUNTER 2022-12-10 11:41 | Outpatient (RCR) | payer MEDICARE, SELFPAY ==
[2022-12-10 13:02] LABS: Anion Gap 10 (5-15); BUN 13 mg/dL (7-18); Calcium,Total 9.3 mg/dL (8.5-10.1); Chloride 103 mmol/L (98-107); Creatinine, Serum 1.63 mg/dL (0.70-1.30); EST Glomerular Filtration Rate 45 mL/min (>60); Est Glom Filt Rate - Afr Amer 54 mL/min (>60); Glucose 145 mg/dL (74-106); Potassium 3.4 mmol/L (3.5-5.1); Sodium Level 136 mmol/L (136-145)
== END 2022-12-10 18:00 | disposition home or self-care (01) ==
LOC: LAB 11:41
DX: E11.9 Type 2 diabetes mellitus without complications (principal); N28.9 Disorder of kidney and ureter, unspecified
CPT/HCPCS: 36415; 80048

== ENCOUNTER 2023-01-07 11:54 | Outpatient (RCR) | payer MEDICARE, SELFPAY ==
[2023-01-07 12:57] LABS: Hemoglobin A1c 5.9 % (3.8-5.6)
[2023-01-07 13:15] LABS: Anion Gap 10 (5-15); BUN 18 mg/dL (7-18); BUN/Creat Ratio 9.6 RATIO (10-20); Calcium,Total 9.5 mg/dL (8.5-10.1); Chloride 98 mmol/L (98-107); Creatinine, Serum 1.88 mg/dL (0.70-1.30); EST Glomerular Filtration Rate 38 mL/min (>60); Est Glom Filt Rate - Afr Amer 46 mL/min (>60); Glucose 127 mg/dL (74-106); Potassium 3.4 mmol/L (3.5-5.1); Sodium Level 133 mmol/L (136-145)
== END 2023-01-26 23:29 | disposition home or self-care (01) ==
LOC: LAB 11:54
DX: E11.9 Type 2 diabetes mellitus without complications (principal); N17.9 Acute kidney failure, unspecified
CPT/HCPCS: 36415; 80048; 83036

== ENCOUNTER 2023-02-10 12:00 | Outpatient (RCR) | payer MEDICARE, SELFPAY ==
[2023-02-10 13:34] LABS: Anion Gap 11 (5-15); BUN 15 mg/dL (7-18); BUN/Creat Ratio 7.8 RATIO (10-20); Calcium,Total 9.8 mg/dL (8.5-10.1); Chloride 100 mmol/L (98-107); Creatinine, Serum 1.92 mg/dL (0.70-1.30); EST Glomerular Filtration Rate 37 mL/min (>60); Est Glom Filt Rate - Afr Amer 45 mL/min (>60); Glucose 140 mg/dL (74-106); Potassium 3.7 mmol/L (3.5-5.1); Sodium Level 136 mmol/L (136-145)
== END 2023-02-10 18:00 | disposition home or self-care (01) ==
LOC: LAB 12:00
DX: E11.9 Type 2 diabetes mellitus without complications (principal); N28.9 Disorder of kidney and ureter, unspecified
CPT/HCPCS: 36415; 80048

== ENCOUNTER 2023-03-30 13:22 | Outpatient (RCR) | payer MEDICARE, SELFPAY ==
[2023-03-30 14:10] LABS: Anion Gap 10 (5-15); BUN 14 mg/dL (7-18); BUN/Creat Ratio 7.5 RATIO (10-20); Calcium,Total 9.5 mg/dL (8.5-10.1); Chloride 99 mmol/L (98-107); Creatinine, Serum 1.86 mg/dL (0.70-1.30); EST Glomerular Filtration Rate 39 mL/min (>60); Est Glom Filt Rate - Afr Amer 47 mL/min (>60); Glucose 153 mg/dL (74-106); Potassium 3.7 mmol/L (3.5-5.1); Sodium Level 135 mmol/L (136-145)
[2023-03-30 14:16] LABS: Hemoglobin A1c 5.8 % (3.8-5.6)
== END 2023-03-30 18:00 | disposition home or self-care (01) ==
LOC: LAB 13:22
DX: E11.9 Type 2 diabetes mellitus without complications (principal); N28.9 Disorder of kidney and ureter, unspecified
CPT/HCPCS: 36415; 80048; 83036

== ENCOUNTER 2023-09-11 12:33 | Outpatient (RCR) | payer MEDICARE, SELFPAY ==
[2023-09-11 14:04] LABS: Anion Gap 8 (5-15); BUN 17 mg/dL (7-18); BUN/Creat Ratio 9.2 RATIO (10-20); Calcium,Total 9.7 mg/dL (8.5-10.1); Chloride 98 mmol/L (98-107); Creatinine, Serum 1.84 mg/dL (0.70-1.30); EST Glomerular Filtration Rate 39 mL/min (>60); Est Glom Filt Rate - Afr Amer 47 mL/min (>60); Glucose 147 mg/dL (74-106); Potassium 3.1 mmol/L (3.5-5.1); Sodium Level 133 mmol/L (136-145)
== END 2023-09-26 18:00 | disposition home or self-care (01) ==
LOC: LAB 12:33
DX: E11.22 Type 2 diabetes mellitus with diabetic chronic kidney disease (principal); N18.9 Chronic kidney disease, unspecified
CPT/HCPCS: 36415; 80048

== ENCOUNTER 2023-10-21 11:09 | Outpatient (RCR) | payer MEDICARE, SELFPAY ==
[2023-10-21 13:20] LABS: Anion Gap 8 (5-15); BUN 18 mg/dL (7-18); BUN/Creat Ratio 9.9 RATIO (10-20); Calcium,Total 9.7 mg/dL (8.5-10.1); Chloride 98 mmol/L (98-107); Creatinine, Serum 1.82 mg/dL (0.70-1.30); EST Glomerular Filtration Rate 39 mL/min (>60); Est Glom Filt Rate - Afr Amer 48 mL/min (>60); Glucose 136 mg/dL (74-106); Potassium 3.3 mmol/L (3.5-5.1); Sodium Level 135 mmol/L (136-145)
[2023-10-22 10:06] LABS: Uric Acid 10.6 mg/dL (3.5-7.2)
[2023-10-22 10:27] LABS: Hemoglobin A1c 5.6 % (3.8-5.6)
== END 2023-10-27 22:28 | disposition home or self-care (01) ==
LOC: LAB 11:09
PROVIDERS: PCP Physician Assistant; Referring Provider Physician Assistant; Visit Provider Physician Assistant
DX: E11.9 Type 2 diabetes mellitus without complications (principal); N18.9 Chronic kidney disease, unspecified
CPT/HCPCS: 36415; 80048; 83036; 84550

== ENCOUNTER → 2023-10-28 | Outpatient (CLI) | payer MEDICARE, SELFPAY ==
[2023-10-28 13:52] LABS: AST(SGOT) 26 U/L (15-37); Alanine Aminotransfer ALT/SGPT 29 U/L (16-61); Albumin, Serum 3.9 g/dL (3.2-5.0); Alkaline Phosphatase 83 U/L (45-117); Anion Gap 10 (5-15); BUN 19 mg/dL (7-18); BUN/Creat Ratio 10.7 RATIO (10-20); Bilirubin, Direct 0.48 mg/dL (0.00-0.30); Calcium,Total 9.7 mg/dL (8.5-10.1); Chloride 99 mmol/L (98-107); Cholesterol 212 mg/dL (200); Creatinine, Serum 1.77 mg/dL (0.70-1.30); EST Glomerular Filtration Rate 41 mL/min (>60); Est Glom Filt Rate - Afr Amer 49 mL/min (>60); Globulin 3.7 g/dL (2.2-4.2); Glucose 136 mg/dL (74-106); High Density Lipoprotein 56 mg/dL; Potassium 3.2 mmol/L (3.5-5.1); Protein, Total 7.6 g/dL (6.4-8.2); Sodium Level 136 mmol/L (136-145); Thyroid Stim Hormone (TSH) 1.72 uIU/mL (0.358-3.74); Triglycerides 185 mg/dL; Very Low Density Lipoprotein 37 mg/dL (5-40)
[2023-10-28 13:59] LABS: BNP,B-Type NATRIURETIC PEPTIDE 281.2 pg/mL (0-100)
== END | disposition home or self-care (01) ==
PROVIDERS: PCP Physician Assistant; Referring Provider Internal Medicine Cardiovascular Disease; Visit Provider Internal Medicine Cardiovascular Disease
DX: I11.0 Hypertensive heart disease with heart failure (principal); I50.9 Heart failure, unspecified; Z95.1 Presence of aortocoronary bypass graft
CPT/HCPCS: 36415; 80048; 80061; 80076; 83880; 84443

== ENCOUNTER → 2023-11-05 | Outpatient (CLI) | payer MEDICARE, SELFPAY ==
[2023-11-05 10:38] LABS: Anion Gap 7 (5-15); BUN 18 mg/dL (7-18); BUN/Creat Ratio 9.7 RATIO (10-20); Calcium,Total 10.3 mg/dL (8.5-10.1); Chloride 97 mmol/L (98-107); Creatinine, Serum 1.86 mg/dL (0.70-1.30); EST Glomerular Filtration Rate 38 mL/min (>60); Est Glom Filt Rate - Afr Amer 47 mL/min (>60); Glucose 133 mg/dL (74-106); Potassium 3.2 mmol/L (3.5-5.1); Sodium Level 134 mmol/L (136-145)
== END | disposition home or self-care (01) ==
LOC: LAB 09:02
PROVIDERS: PCP Physician Assistant; Referring Provider Nurse Practitioner Gerontology; Visit Provider Nurse Practitioner Gerontology
DX: E87.6 Hypokalemia (principal); I50.9 Heart failure, unspecified; N18.9 Chronic kidney disease, unspecified
CPT/HCPCS: 36415; 80048

== ENCOUNTER → 2023-11-12 | Outpatient (CLI) | payer MEDICARE, SELFPAY ==
[2023-11-12 09:45] LABS: Anion Gap 8 (5-15); BUN 18 mg/dL (7-18); BUN/Creat Ratio 9.8 RATIO (10-20); Calcium,Total 9.7 mg/dL (8.5-10.1); Chloride 99 mmol/L (98-107); Creatinine, Serum 1.83 mg/dL (0.70-1.30); EST Glomerular Filtration Rate 39 mL/min (>60); Est Glom Filt Rate - Afr Amer 47 mL/min (>60); Glucose 134 mg/dL (74-106); Potassium 3.7 mmol/L (3.5-5.1); Sodium Level 134 mmol/L (136-145)
[2023-11-12 18:15] LABS: BNP,B-Type NATRIURETIC PEPTIDE 304.5 pg/mL (0-100)
== END | disposition home or self-care (01) ==
LOC: LAB 08:28
PROVIDERS: PCP Physician Assistant; Referring Provider Nurse Practitioner Gerontology; Visit Provider Nurse Practitioner Gerontology
DX: I50.9 Heart failure, unspecified (principal); E87.6 Hypokalemia
CPT/HCPCS: 36415; 80048; 83880

== ENCOUNTER 2023-11-30 07:28 | Outpatient (RCR) | payer MEDICARE, SELFPAY ==
[2023-11-30 08:22] LABS: Anion Gap 9 (5-15); BUN 19 mg/dL (7-18); Calcium,Total 9.8 mg/dL (8.5-10.1); Chloride 104 mmol/L (98-107); Creatinine, Serum 1.73 mg/dL (0.70-1.30); EST Glomerular Filtration Rate 42 mL/min (>60); Est Glom Filt Rate - Afr Amer 51 mL/min (>60); Glucose 130 mg/dL (74-106); Potassium 3.6 mmol/L (3.5-5.1); Sodium Level 136 mmol/L (136-145)
== END 2023-11-30 18:00 | disposition home or self-care (01) ==
LOC: LAB 07:28
PROVIDERS: Nurse Practitioner Gerontology; PCP Physician Assistant; Referring Provider Physician Assistant; Visit Provider Physician Assistant
DX: E11.9 Type 2 diabetes mellitus without complications (principal)
CPT/HCPCS: 36415; 80048

== ENCOUNTER → 2023-12-04 | Outpatient (CLI) | payer MEDICARE, SELFPAY ==
--- NOTE | 2023-12-04 06:53 | ECHOCS_ITS ---
Version 2 Reason For Study: Heart Disease Procedure This was a 2D Doppler, Color Flow transthoracic echocardiogram. Contrast injection was performed. Exam performed in department. Left Ventricle Normal LV size. Mild concentric left ventricular hypertrophy. The left ventricular ejection fraction is 40 %. Post operative septal motion. Basal anteroseptal: Hypokinetic. Mid-anteroseptal : Hypokinetic. Mid-Anterior : Mildly hypokinetic. Right Ventricle Normal RV size. Normal systolic function. Atria Normal left atrium. Normal right atrium. Mitral Valve Mild focal mitral valve calcification. Mild (1+) eccentric mitral valve insufficiency. Tricuspid Valve Normal tricuspid valve. Mild (1+) tricuspid valve insufficiency. Pulmonary artery systolic pressure is 30 mmHg. Aortic Valve Trisinus/trileaflet aortic valve. Mild focal aortic valve calcification. Pulmonic Valve The pulmonic valve is not well visualized. Great Vessels Normal aortic root. The pulmonary artery is normal size. Inferior vena cava collapse with respiration. Pericardium/Pleural No pericardial effusion. Medication Diluted definity 4ml given slow IV push to enhance endocardial definition. MMode/2D Measurements & Calculations LVIDd: 5.1 cm IVSd: 1.2 cm LVOT diam: 2.2 cm LVIDs: 3.9 cm LVPWd: 1.2 cm RVDd: 3.9 cm FS: 22.5 % LVOT area: 3.9 cm2 Ao root diam: 3.8 cm LAV(MOD-bp): 46.5 ml LVAd ap4: 34.3 cm2 LAV(MOD-bp) Indexed: 23.8 ml/m2 LVLd ap4: 7.6 cm LAV(MOD-sp2): 36.2 ml EDV(MOD-sp4): 130.4 ml LAV(MOD-sp4): 47.6 ml EDV(sp4-el): 130.8 ml LVAs ap4: 22.5 cm2 LVLs ap4: 6.5 cm ESV(MOD-sp4): 65.3 ml ESV(sp4-el): 66.1 ml EF(MOD-sp4): 49.9 % EF(sp4-el): 49.5 % SV(MOD-sp4): 65.1 ml SV(sp4-el): 64.7 ml LA A4 area: 19.4 cm2 RA A4 area: 12.3 cm2 TAPSE: 1.4 cm Doppler Measurements & Calculations MV E max sergo: 103.8 cm/sec Lat Peak E' Sergo: 8.6 cm/sec Med Peak E' Sergo: 6.0 cm/sec E/E' lat: 12.1 E/E' med: 17.4 Ao V2 max: 158.9 cm/sec LV V1 max: 82.0 cm/sec SV(LVOT): 57.2 ml Ao max P.4 mmHg LV V1 max P.7 mmHg Ao V2 mean: 116.0 cm/sec LV V1 mean P.4 mmHg Ao mean P.0 mmHg LV V1 mean: 55.7 cm/sec Ao V2 VTI: 30.8 cm LV V1 VTI: 14.8 cm AV (velocity ratio): 0.48 CHELY(I,D): 1.9 cm2 CHELY(V,D): 2.0 cm2 PA V2 max: 71.5 cm/sec TR max sergo: 250.6 cm/sec PA max PG (full): 1.3 mmHg TR max P.1 mmHg ECHO/Echo Complete W/ Contrast Interpretation Summary Normal LV size. The left ventricular ejection fraction is 40 %. Mild concentric left ventricular hypertrophy. Pulmonary artery systolic pressure is 30 mmHg. Mild (1+) eccentric mitral valve insufficiency. Contrast injection was performed. Compared to previous study, the left ventricu lar systolic function has worsened.. Ordering Physician: Mundo Bains Referring Physician: Crow Carrasquillo Performed By: Erica Pak, ANGUS, RVT
--- NOTE | 2023-12-04 12:32 | STRESSREP_ITS ---
Stress Test Report Pharmacologic myocardial perfusion stress test. 68-year-old man with a history of coronary artery disease Resting EKG demonstrates atrial fibrillation with a rate of 65bpm and a left bundle branch block. Resting blood pressure is 132/70 mmHg. 0.4 mg of regadenoson was infused per usual protocol followed by rapid intravenous saline flush injection. Continuous EKG monitoring was performed. The maximum heart rate was 83 bpm which was 54% of max impacted heart rate the maximum workload was 1 metabolic equivalent. At rest there were no ST or T wave changes noted to suggest ischemia and at peak infusion nonspecific ST changes were noted which did not meet the criteria for ischemia. No clinical angina is noted. The final blood pressure was 120/72 mmHg. Myocardial perfusion protocol. 14.2 mCi of technetium 99m sestamibi was injected at rest. 0.4 mg of regadenoson was infused per usual protocol. At peak infusion 44.4 mCi of t echnetium 99m sestamibi was injected stress images were obtained stress and rest images were reconstructed and compared in the short axis vertical long and horizontal long axis. Gated images were also obtained. Perfusion SPECT analysis: Review of the stress images demonstrate normal uptake of tracer noted in all areas of the myocardium except for the distal anterior wall and apex which demonstrates a perfusion defect. The resting images demonstrate a similar pattern suggestive of a previous distal anterior apical infarct. No significant reversibility is noted suggest ischemia. Gated SPECT analysis: The gated ejection fraction is 49%. Conclusion: Normal pharmacologic myocardial perfusion stress test. Previous anteroapical infarct noted Mildly reduced ejection fraction.
== END | disposition home or self-care (01) ==
PROVIDERS: PCP Physician Assistant; Referring Provider Internal Medicine Cardiovascular Disease; Visit Provider Internal Medicine Cardiovascular Disease
DX: I51.9 Heart disease, unspecified (principal); Z95.1 Presence of aortocoronary bypass graft
CPT/HCPCS: 78452; 93017; 93306; A9500; Q9957; A4216; C8929; J2785

== ENCOUNTER 2024-01-11 13:02 | Outpatient (RCR) | payer MEDICARE, SELFPAY ==
[2024-01-11 14:23] LABS: Anion Gap 10 (5-15); BUN 17 mg/dL (7-18); BUN/Creat Ratio 9.3 RATIO (10-20); Calcium,Total 9.5 mg/dL (8.5-10.1); Chloride 101 mmol/L (98-107); Creatinine, Serum 1.82 mg/dL (0.70-1.30); EST Glomerular Filtration Rate 39 mL/min (>60); Est Glom Filt Rate - Afr Amer 48 mL/min (>60); Glucose 146 mg/dL (74-106); Potassium 3.9 mmol/L (3.5-5.1); Sodium Level 135 mmol/L (136-145)
== END 2024-01-27 18:00 | disposition home or self-care (01) ==
LOC: LAB 13:02
PROVIDERS: PCP Physician Assistant; Referring Provider Physician Assistant; Visit Provider Physician Assistant
DX: E11.9 Type 2 diabetes mellitus without complications (principal); N18.9 Chronic kidney disease, unspecified
CPT/HCPCS: 36415; 80048

== ENCOUNTER → 2025-02-08 | Outpatient (CLI) | payer MEDICARE, SELFPAY ==
[2025-02-08 12:24] LABS: Hematocrit 42.1 % (40-54); Hemoglobin 15.4 g/dL (13.0-16.5); Mean Corp Hgb Conc 36.6 g/dL (32-36); Mean Corpuscular Volume 97.9 fL (80-94); Mean Platelet Vol. 9.6 fl (6.2-12.0); Platelet Count 220 K/mm3 (150-450); RBC Distribution Width CV 12.8 % (11.6-14.6); RBC Distribution Width SD 45.4 fl (35.1-43.9); Red Blood Count 4.30 M/mm3 (4.6-6.2); White Blood Count 7.1 K/mm3 (4.4-11.0)
[2025-02-08 13:01] LABS: PTHIN 243 pg/mL (11-61)
[2025-02-08 13:04] LABS: Albumin, Serum 4.4 g/dL (3.4-4.8); Anion Gap 16 (5-15); BUN 16 mg/dL (4-19); BUN/Creat Ratio 9.9 RATIO (10-20); Calcium,Total 9.8 mg/dL (7.6-11.0); Carbon Dioxide 25.8 mmol/L (21.0-32.0); Chloride 94 mmol/L (98-108); Glucose 142 mg/dL (70-99); Potassium 3.2 mmol/L (3.3-5.1); Vitamin D,25 Hydroxy 9.7 ng/mL (30-100)
[2025-02-08 13:08] LABS: Creatinine, Urine (random) 183.00 mg/dL (39.00-259.00); Protein, Urine (Random) 63.8 mg/dL (0.0-12.0); Protein:Creat Ratio 349 mg/g CRE (0-200)
== END | disposition home or self-care (01) ==
LOC: LAB 11:53
PROVIDERS: PCP Physician Assistant; Referring Provider Internal Medicine Nephrology; Visit Provider Internal Medicine Nephrology
DX: N18.32 Chronic kidney disease, stage 3b (principal)
CPT/HCPCS: 36415; 80069; 82306; 82570; 83970; 84156; 85027

== ENCOUNTER → 2025-03-27 | Outpatient (CLI) | payer MEDICARE, SELFPAY ==
--- NOTE | 2025-03-27 11:00 | ECHOCS_ITS ---
Reason For Study Reason For Study: CHF Procedure This was a 2D Doppler, Color Flow transthoracic echocardiogram. The study was technically difficult. Contrast injection was performed. Exam performed in department. Left Ventricle Normal left ventricle. Mild concentric left ventricular hypertrophy. The left ventricular ejection fraction is 40 %. Post operative septal motion. Right Ventricle Normal RV size. Normal systolic function. Atria Normal left atrium. Normal right atrium. Mitral Valve Normal mitral valve. Mild (1+) eccentric mitral valve insufficiency. Tricuspid Valve Normal tricuspid valve. Aortic Valve Trisinus/trileaflet aortic valve. Mild focal aortic valve calcification. Pulmonic Valve The pulmonic valve is not well visualized. Great Vessels Normal aortic root. The pulmonary artery is normal size. Inferior vena cava collapse with respiration. Pericardium/Pleural No pericardial effusion. Medication 22 gauge I.V. with prn adaptor inserted into right arm. Diluted definity 4ml given slow IV push to enhance endocardial definition. MMode/2D Measurements & Calculations LVIDd: 4.7 cm IVSd: 1.3 cm LVOT diam: 1.9 cm LVIDs: 4.3 cm LVPWd: 1.4 cm FS: 9.7 % LVOT area: 3.0 cm2 Ao root diam: 3.5 cm LAV(MOD-bp): 45.8 ml LVAd ap4: 35.5 cm2 LAV(MOD-bp) Indexed: 23.9 ml/m2 LVLd ap4: 7.9 cm LAV(MOD-sp2): 45.9 ml EDV(MOD-sp4): 133.2 ml LAV(MOD-sp4): 40.8 ml EDV(sp4-el): 135.7 ml LVAs ap4: 24.0 cm2 LVLs ap4: 6.6 cm ESV(MOD-sp4): 72.7 ml ESV(sp4-el): 73.6 ml EF(MOD-sp4): 45.4 % EF(sp4-el): 45.7 % SV(MOD-sp4): 60.5 ml SV(sp4-el): 62.1 ml LA A4 area: 17.6 cm2 SI(MOD-sp4): 31.5 ml/m2 LA dimension(2D): 4.7 cm RA A4 area: 9.9 cm2 Doppler Measurements & Calculations MV E max nigel: 88.5 cm/sec Ao V2 max: 148.9 cm/sec LV V1 max: 124.2 cm/sec Ao max P.0 mmHg LV V1 max P.3 mmHg Ao V2 mean: 109.6 cm/sec LV V1 mean P.5 mmHg Ao mean P.5 mmHg LV V1 mean: 84.6 cm/sec Ao V2 VTI: 27.4 cm LV V1 VTI: 21.9 cm AV (velocity ratio): 0.80 CHELY(I,D): 2.4 cm2 CHELY(V,D): 2.5 cm2 SV(LVOT): 65.4 ml PA V2 max: 85.7 cm/sec PA V2 mean: 55.5 cm/sec ECHO/Echo Complete W/ Contrast Interpretation Summary The left ventricular ejection fraction is 40 %. Normal left ventricle. Post operative septal motion. Mild concentric left ventricular hypertrophy. Contrast injection was performed. Ordering Physician: Dru Pak Referring Physician: Dru Pak Performed By: Mami Kang RCS
[2025-03-27 13:21] LABS: Cholesterol 173 mg/dL (<=200); Low Density Lipoprotein Calc. 42 mg/dL; Triglycerides 251 mg/dL; Very Low Density Lipoprotein 50 mg/dL (5-40); cholesterol:hdl ratio screen 2.15
== END | disposition home or self-care (01) ==
PROVIDERS: PCP Physician Assistant; Referring Provider Nurse Practitioner Family; Visit Provider Nurse Practitioner Family
DX: I51.9 Heart disease, unspecified (principal); E78.5 Hyperlipidemia, unspecified
CPT/HCPCS: 36415; 80061; 93306; Q9957; A4216; C8929